=== PATIENT | male | born 1955 | race Caucasian/White ===

== ENCOUNTER 2017-05-10 13:30 | Outpatient (RCR) | payer OTHER, SELFPAY ==
--- NOTE | 2017-04-12 16:30 | HP.PTEVAL_ITS ---
Patient's Visit Information JEISON WHATLEY is a 61 year old M referred to Physical Therapy by Litzy Man , DO LUNA with a diagnosis of Right RTC Repair. Date of Evaluation: 04/12/17 Physical Therapist: April Parada - Visit Plan Frequency: 2x /Week Duration: 6 Weeks Plan: s/p RTC repair (subscap) 03/28/[address] Brown- follow protocol - Subjective Subjective: Right RTC repair and clean out Mar 28, [address] Man. Headed home straight home after surgery- has help at home. Most of the pain is in the front- radiates to the elbow- but no pain in the neck. Describes pain as dull and achy- No N/T in the fingers that is new. Worst: 7/10 Agg: moving it around. Averages 4-5/10. Sleep: goes to sleep in the reclyner and then goes upstairs after 2-3 hours. Best: 3/10 Eases: polar pack in the evenings- Takes pain meds for his neck- [place]- by Dr. Plasencia. Does have injections periodically- has had C5-C6 fused 2006 or . Wear and tear of the shoulder- no specific injury. 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 Right hand dominate. Fully I before surgery. Saw Dr. Brown today- she said don 't mess up my good work. Has been using his arm but when he feels pain he stops. Wears the sling all the time. No x-rays today- took out sutures. PMHx/ Meds: no change since surgery - Objective Posture: guarding of the right UE. Observation: wearing sling on the right without pillow. Palpation: tender along medial border of the scapula and in the anterior shoulder along bicipital groove. ROM: finger dexterity: WNL, Elbow : WNL, PROM: Shoulder: flexion- 160 degrees, Abd: 150 degrees, IR: to belly, ER : 40 degrees- mild pain througout but no empty end feel. Strength: Clerical Adjudicator: equal to other side - Goals Goal 1:: Patient will be I with HEP and progression Goal Time Frame: 4-6 Weeks Goal 2:: Patient will demo full AROM as appropriate through RTC protocol Goal Time Frame: 4-6 Weeks Goal 3:: Patient will demo ability to stack 3 cones overhead for 3 min with no increased pain (as per protocol) Goal Time Frame: 4-6 Weeks Goal 4:: Patient will report 0/10 pain for 1 week with return to all normal activities (as per protocol) Goal Time Frame: 4-6 Weeks - Rehabilitation Potential Physical Therapy Diagnosis: Patient presents with hypomobility- he has decreased ROM, strength and muscular endurance leading to decreased ability to perform ADL's. Rehabilitation Potential: Fair - Anticipated Interventions Patient/Client Instruction: Educate patient on: Benefits of Fitness Program For the Purpose of:: To increase tolerance to activity/condition/position Therapeutic Exercise to Include: Strength training, Endurance training, Coordination, Body mechanics, Postural training, Passive ROM, Active ROM, Scapular Strength/Stabilization For the Purpose of:: To improve muscle performance and motor function Manual Therapy Techniques to Include: Passive ROM For the Purpose of:: To increase ROM TENS: Yes Cryotherapy (ice pack, ice massage): Yes Thermo therapy (hot pack): Yes Ultrasound (thermal/non thermal): No For the Purpose of:: To decrease pain Thank you for the opportunity to evaluate your patient. For Medicare and Medicare HMO plans, please review the plan of care and approve it. It will need to be FAXED BACK to us at [phone] for Medicare purposes. Please let me know if there are questions or concerns regarding this plan of care. Physician Signature: Date:
--- NOTE | 2017-07-23 14:35 | HP.PTDCNRP_ITS ---
HP - Discharge Summary (1) - Patient Information JEISON WHATLEY was seen in my office for initial evaluation on 04/12/17. The following Plan of Care was established for this patient: Initial Frequency: 2x /Week Initial Duration: 6 Weeks - Anticipated Interventions Patient/Client Instruction: Educate patient on: Benefits of Fitness Program For the Purpose of:: To increase tolerance to activity/condition/position Therapeutic Exercise to Include: Strength training, Endurance training, Coordination, Body mechanics, Postural training, Passive ROM, Active ROM, Scapular Strength/Stabilization For the Purpose of:: To improve muscle performance and motor function Manual Therapy Techniques to Include: Passive ROM For the Purpose of:: To increase ROM TENS: Yes Cryotherapy (ice pack, ice massage): Yes Thermo therapy (hot pack): Yes Ultrasound (thermal/non thermal): No For the Purpose of:: To decrease pain This patient was last seen in our office . Pertinent comments regarding their Physical therapy will appear below: Patient has not attended physical therapy in over 4 weeks- appropriate to be d/ c at this time. At this point I will be discontinuing this patient from physical therapy. I would be happy to see this patient again in the future if found appropriate by the physician. Thank you! April Parada
== END 2017-05-10 19:00 | disposition home or self-care (01) ==
LOC: PT 13:30
PROVIDERS: Family Provider Family Medicine; PCP Family Medicine; Visit Provider Orthopaedic Surgery
DX: Z98.890 Other specified postprocedural states (principal)
CPT/HCPCS: 97110; 97161

== ENCOUNTER 2018-03-12 10:00 | Outpatient (RCR) | payer OTHER, SELFPAY ==
--- NOTE | 2018-02-11 14:23 | HP.PTEVAL ---
Patient's Visit Information JEISON WHATLEY is a 62 year old M referred to Physical Therapy by ROVERTO ALTAMIRANO with a diagnosis of Right shoulder pain. Date of Evaluation: 02/11/18 Physical Therapist: April Parada - Visit Plan Plan: Not appropriate for PT at this time- would benefit from OT for hand therapy as this is his limiting factor. - Subjective Subjective: Patient reports that he has pain in the right shoulder- March [address] 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 Pain comes and goes when he is working overhead- can work through it or stop- can rest for a few min and can go back to activity. Worst: 09/23 Best: 04/25. Describes the pain as sharp/shooting- in the joint- no radiating pain- N/T secondary to spinal fusion 2006. Right hand dominate. Feels that he is 50% of his normal capacity- due to his hands. Can do 80% of his work due to his shoulders. No increase in tovar, blurred vision, neck pain. Sleep: wakes him up occasionally but not very often more of a hand issue. No x-rays or MRI recently. Saw MD at 6 weeks who was happy with his progress and has not had to see them again. PMHx: cervical fusion, left shoulder 2014, right shoulder 2017. Meds: [facility] - Objective Posture: FH, RS,- can correct with verbal cues and does maintain. Palpation: not tender. ROM: WFL in all planes. Strength: 5/5 throughout Scap: fair plus. Special Test: Impingment: negative Empty Can: negative - Rehabilitation Potential Physical Therapy Diagnosis: Patient currently has no deficits with right shoulder - Anticipated Interventions Thank you for the opportunity to evaluate your patient. For Medicare and Medicare HMO plans, please review the plan of care and approve it. It will need to be FAXED BACK to us at [phone] for Medicare purposes. Please let me know if there are questions or concerns regarding this plan of care. Physician Signature: Date:
--- NOTE | 2018-03-27 09:48 | HP.OTDCSUM_ITS ---
HP - OT D/C Summary It has been my pleasure to treat JEISON WHATLEY under orders from ROVERTO ALTAMIRANO, for the diagnosis of bilateral hand pain for a total of 3 visit(s). Please see the following information for a summary of their discharge status. - Overall Improvement % Improvement: 75 - Objective Objective/Function: apprentice machinist outside strength 85# in L and 60# in R. lateral 18# in R and 23# in L. tripod 16# in R and 22# in L - Goals Patient Goals: Decrease Pain, Decrease Swelling/Stiffness, Use Hand/Wrist/Arm Normally Again, Be More Independent in ADLS, Resume Former Household Responsibilities (Cooking,Cleaning,Yard, etc.), Resume Hobbies Goal:: Patient will increase overall apprentice machinist outside strength by 20 lbs. by completing strengthening exercises and stretches in order to complete BADL?s and IADL?s. Patient will improve lateral and tripod grasps by 5 lbs. by completing strengthening and stretching exercises in order to complete BADL?s and IADL?s. Goal:: Patient will report overall decrease in pain of <4 in order to complete BADL?s and IADL?s. Goal:: Patient will demo ability to diamond picker 10 small objects within 20 seconds in order to increase I with BADL's and IADL's. Goal:: Patient will demo understanding of joint protection and ECM recommendations for increase I with BADL?s and IADL?s. - Plan Plan: paraffin. joint mobs/ distractions - D/C Information Discharge Comments: pt. was seen for a couple visits to educate about joint protection and educate about conservative tx. Pt. tolerated conservative methods for arthritis management and reported understanding of joint protection recommendations. pt. was non-compliant with joint protection recommendations and reported that conservative methods provided relief for a couple hours a day. pt. was d/c d/t plateau of progress with pain management. pt d/c with HEP and recommendations to modify work tasks and purchasing home paraffin unit and copper gloves. If there are questions or concerns regarding this patient's occupational therapy, please fell free to call me at [phone]. Thank you for the referral of this patient. Sincerely, Guera Mitchell, OTR/L, CHT
== END 2018-03-12 19:00 | disposition home or self-care (01) ==
LOC: OT 10:00
PROVIDERS: Family Provider Family Medicine; PCP Family Medicine
DX: M25.511 Pain in right shoulder (principal)
CPT/HCPCS: 97140; 97161; 97166; G8978; G8979; G8980; G8987; G8988; G8989

== ENCOUNTER 2018-06-20 15:00 | Outpatient (RCR) | payer OTHER, SELFPAY ==
--- NOTE | 2018-05-21 16:17 | HP.PTEVAL ---
Patient's Visit Information JEISON WHATLEY is a 62 year old M referred to Physical Therapy by EVELIA LAYNE with a diagnosis of L shoulder strain. Date of Evaluation: 05/21/18 Physical Therapist: Noman Casper, PT, ATC - Visit Plan Frequency: 2x /Week Duration: 4 Weeks Plan: L shoulder strengthening (rot cuff), scap stab ex's, UBE, and HEP - Subjective Findings: Pt reports he fell two weekends ago on ice and injured his L shoulder. Pt reports he has a Hx of shoulder problems as he has had both of his rotator cuffs repaired in the past. Pt reports . has pain that rediates from his lshoulder to his elbow. Pt reports his pain is achy in general, but if he moves it wrong, pain becomes stabbing in nature. 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 Pt reports he is unable to lift his L LE over his head, but he can do all activity with his arm down. Pt is L hand dom. 4/10 pain at rest, 8/10 pain at worst - Pain L shoulder Pain Intensity (Out of 10): 4 Pain Intensity Range: 8 - Objective Neuro: B UE sensation is WNL to light touch. B bicepital reflex= 1/3. palpation: Pt has sig pain in the biceps origin. No obvious deformity. ROM: R shoulder flex= 160, abd= 160, ER 65, IR WNL; L shoulder flex= 40, abd= 40, ER= 45, IR moderately limited. MMT: R shoulder is 5/5 throughout. L shoulder is 2-/5 and painful with testing. Special testing: empty can pos, HK pos - Goals Goal 1:: Decrease L shoulder pain x 50% to aid with sleep Goal Time Frame: 2-4 Weeks Goal 2:: Increase L shoulder ROM flex and abd x 40 degrees to aid with overhead activity Goal Time Frame: 2-4 Weeks Goal 3:: Increase L shoulder strength x 1 grade to aid with RTW without limitation Goal Time Frame: 2-4 Weeks Goal 4:: I with HEP Goal Time Frame: 2-4 Weeks - Rehabilitation Potential Physical Therapy Diagnosis: L shoulder pain, weakness, and limited ROM secondary to rot cuff pathology Rehabilitation Potential: Good - Anticipated Interventions Patient/Client Instruction: Educate patient on: Condition, Plan of Care For the Purpose of:: To improve self management Therapeutic Exercise to Include: Strength training, Endurance training, Scapular Strength/Stabilization For the Purpose of:: To decrease pain, To increase ROM, To improve muscle performance and motor function Cryotherapy (ice pack, ice massage): Yes For the Purpose of:: To decrease pain Thank you for the opportunity to evaluate your patient. For Medicare and Medicare HMO plans, please review the plan of care and approve it. It will need to be FAXED BACK to us at [phone] for Medicare purposes. For Medicare only, by signing this I certify the plan of care. Please let me know if there are questions or concerns regarding this plan of care. Physician Signature: Date:
--- NOTE | 2018-10-31 11:44 | HP.PTDCSUM_ITS ---
HP - PT D/C Summary It has been my pleasure to treat JEISON WHATLEY under orders from EVELIA LAYNE, for the diagnosis of L shoulder strain for a total of 9 visit(s). Discharge Date: Please see the following information for a summary of their discharge status. - Subjective Subjective: Pt reports he is ready for HEP - Pain L shoulder Pain Intensity (Out of 10): 3 - Overall Improvement % Improvement: 50 - Objective Objective/Function: L shoulder pain is currently 3/10, increases to 5-6/10 at work. L shoulder ROM: flexion= 115, abd= 60, ER= 55, IR WNL compared bilateral ly. L shoulder MMT: 3/5 in available range. Pt is I with HEP - Goals Goal 1:: Decrease L shoulder pain x 50% to aid with sleep Goal Progress: Goal Met Goal 2:: Increase L shoulder ROM flex and abd x 40 degrees to aid with overhead activity Goal Progress: Progressing Goal 3:: Increase L shoulder strength x 1 grade to aid with RTW without limitation Goal Progress: Progressing Goal 4:: I with HEP Goal Progress: Goal Met - Plan Plan: Discharge - D/C Information If there are questions or concerns regarding this patient's physical therapy, please feel free to call me at [phone]. Thank you for the referral of this patient. Sincerely, Noman Casper, PT, ATC
== END 2018-06-20 19:00 | disposition home or self-care (01) ==
LOC: PT 15:00
PROVIDERS: Family Provider Family Medicine; PCP Family Medicine
DX: M25.512 Pain in left shoulder (principal)
CPT/HCPCS: 97110; 97161; 97530

== ENCOUNTER → 2019-03-25 09:46 | Outpatient (CLI) | payer MEDICARE, SELFPAY ==
--- NOTE | 2019-03-25 09:52 | RAD_ITS ---
STUDY: X-RAY - LUMBAR SPINE REASON FOR EXAM: Male, 63 years old. Back pain TECHNIQUE: 3 view(s) of the lumbar spine were obtained. COMPARISON: 12 March 2017 FINDINGS: Lumbar spine is intact and aligned with multilevel age-related age appropriate spondylosis. Mineralization is normal. Paraspinous soft tissue shadows are unremarkable. SI joints are normal. RAD/Lumbar Spine 2 or 3 Views IMPRESSION: Unremarkable radiography of the lumbar spine with degenerative change. MR for further details of canal contents. Electronically Signed: Mara Campbell, at 18:06 EST Tel , Service support ,
== END ==
PROVIDERS: Family Provider Family Medicine; PCP Family Medicine; Referring Provider Anesthesiology Pain Medicine; Visit Provider Anesthesiology Pain Medicine
DX: M54.9 Dorsalgia, unspecified (principal)
CPT/HCPCS: 72100

== ENCOUNTER → 2019-03-29 07:04 | Outpatient (CLI) | payer MEDICARE, SELFPAY ==
--- NOTE | 2019-03-29 07:18 | MRI_ITS ---
STUDY: MRI LUMBAR SPINE WITHOUT CONTRAST REASON FOR EXAM: Male, 63 years old. Back pain TECHNIQUE: Standardized fat and water weighted pulse sequences were obtained in the sagittal and axial planes. COMPARISON: 12 March 2017 FINDINGS: There is grade 1 degenerative retrolisthesis of L2 on L3, approximately 3 to 4 mm and unchanged since prior. Diffuse marrow is heterogeneous likely due to superimposed acute degenerative reactive changes at multiple levels, worst at L1-L2 and L4-L5. Paraspinous soft tissues are unremarkable. Aorta is of normal caliber. Conus medullaris terminates at T12-L1. Cauda equina is redundant and compressed at L3-L4 and L4-L5. T12-L1, L1-L2 of patent canal and foramina. L2-L3 has mild to moderate thecal sac compression due to circumferential spondylosis and dorsal epidural lipomatosis. There is mild bilateral foraminal stenosis. L3-L4 has moderate spondylotic canal stenosis and severe thecal sac compression due to superimposed spondylosis. There is moderate bilateral foraminal stenosis. L4-L5 has severe spondylotic thecal sac compression. There is moderate bilateral foraminal stenosis and bilateral lateral recess stenosis. L5-S1 has been canal and lateral recesses with mild left foraminal stenosis. Right foramen is patent. Since 2017 degenerative change has progressed with marked worsening of compressive effect. MRI/Spine Lumbar (Routine) IMPRESSION: 1. Progression of degenerative change and compressive effect since 2017. 2. Severe spondylotic thecal sac compression at L4-L5. Neurosurgical referral is advised. Electronically Signed: Mara Campbell, at 18:32 EST Tel , Service support ,
== END ==
PROVIDERS: Family Provider Family Medicine; PCP Family Medicine; Referring Provider Anesthesiology Pain Medicine; Visit Provider Anesthesiology Pain Medicine
DX: M54.9 Dorsalgia, unspecified (principal)
CPT/HCPCS: 72148

== ENCOUNTER → 2019-05-27 13:30 | Outpatient (CLI) | payer MEDICARE, SELFPAY ==
--- NOTE | 2019-05-27 13:30 | RAD_ITS ---
STUDY: X-RAY - LUMBAR SPINE REASON FOR EXAM: Male, 63 years old. LBP TECHNIQUE: 4 view(s) of the lumbar spine were obtained. COMPARISON: None FINDINGS: Normal lumbar lordosis. There is mild lumbar levoscoliosis. There is a grade 1 anterolisthesis of L4 relative to L3 and L5, and a grade 1 anterolisthesis of L3 relative to L2. There is diffuse endplate spondylosis. There is multi-level degenerative disc disease with multi-level disc space narrowing. There are calcified plaques in abdominal aorta. RAD/L/S Spine Min 4 Views IMPRESSION: 1. Mild lumbar levoscoliosis. 2. Diffuse endplate spondylosis. 3. Grade 1 anterolisthesis of L4 relative to L3 and L5, and a grade 1 anterolisthesis of L3 relative to L2. 4. There is no evidence of fracture. 5. There is multilevel disc space narrowing. Electronically Signed: Cheo Hazel MD at 22:23 EST , Service support ,
== END ==
LOC: HPRAD 13:30
PROVIDERS: PCP Family Medicine; Referring Provider Orthopaedic Surgery; Visit Provider Orthopaedic Surgery
DX: M54.5 Low back pain (principal)
CPT/HCPCS: 72110

== ENCOUNTER 2019-09-05 12:13 | Emergency (ER) | payer MEDICARE, SELFPAY ==
[2019-05-27 21:35] VITALS: BMI 28.2
[2019-09-05 12:14] VITALS: BP 115/60; PULSE 84; RESP 16; TEMP 36.6; O2SAT 95; BMI 23.1
--- NOTE | 2019-09-05 12:27 | ED.DCSUM_ITS ---
History of Present Illness Chief Complaint: Complaint Informant: Patient Onset: Days Context: Gradual Onset Timing: Continuous Current Severity: Moderate Maximum Severity: Moderate Narrative: The patient is a 63-year-old male with medical history significant for chronic back pain who is approximately 7 days status post L1-L5 lumbar discectomy with fusion the presents to the emergency department with urinary retention. Patient had his surgery [facility]. He did have urinary retention after his surgery. He was discharged home with a catheter. He followed up to have the catheter removed and was able to urinate. He states that he has to sit down to urinate because of his back surgery. Over the past 24 hours, he states he is had significant difficulty urinating. He denies any numbness in his groin. He denies any weakness in his legs. He said no fever or chills. He states he is otherwise been in his normal state of health. Prior similar symptoms: Yes Recent Illness/Hospitalization: Yes Past Medical History - Allergies and Home Meds Allergies/Adverse Reactions: Allergies bupropion [From Wellbutrin] Allergy (Mild, Verified 09/05/19 12:16) swelling Primary Care Physician: Florin Tao MD [Primary Care Provider] - Prior records reviewed: Yes Past Medical History: - - Prior prostate and bladder surgery, hypertension Surgical History: - - Laminectomy and fusion Smoking Status: Current every day smoker Review of Systems General: Denies: Chills, Fever, Sweats Eyes: Denies: Visual changes - bilaterally, Diplopia ENT: Denies: Rhinorrhea, Sore throat Cardiovascular: Denies: Chest pain, Palpitations Respiratory: Denies: Dyspnea, Cough, Dyspnea on exertion Gastrointestinal: Denies: Abdominal pain, Nausea, Vomiting, Diarrhea, Melena, Hematochezia Genitourinary: Reports: Frequency Musculoskeletal: Denies: Back pain, Extremity Pain Skin: Denies: Rash, Wounds Neurological: Denies: Headache, Weakness, Numbness Physical Exam Vital Signs/Narrative: Vital Signs Temp Pulse Resp BP Pulse Ox 09/05/19 12:14 97.8 F 84 16 115/60 95 Inital Vital Signs reviewed: Yes General: Well nourished, Well developed, No Acute Distress Head: Normocephalic, Atraumatic Eyes: Perrl, EOMI ENT: Moist mucous membranes, No rhinorrhea Neck: Supple, Nontender Cardiovascular: Regular rate, Regular rhythm, No murmurs Respiratory: No distress, CTA bilaterally, Chest nontender Abdomen: Soft, Nontender, Nondistended, Normal bowel sounds Back: Nontender, Normal Inspection Extremities: Nontender, No edema Skin: Normal color, No rash Neurological: Alert, Oriented x3, Cranial nerves II-XII grossly intact, Normal Strength, Normal Sensation Psychological: Normal affect, Normal Mood Diagnostic/Tx/Re-eval Abnormal Lab Results 09/05/19 09/05/19 09/05/19 12:45 12:45 12:45 WBC 20.4 H RBC 3.72 L Hgb 10.8 L Hct 33.9 L MCV 91.1 MCH 29.0 MCHC 31.9 L RDW Std Deviation 44.5 H RDW Coeff of Zachary 13.3 Plt Count 422 MPV 8.7 Immature Gran % (Auto) 0.800 Neut % (Auto) 80.2 H Lymph % (Auto) 11.5 L [place] % (Auto) 7.1 Eos % (Auto) 0.2 Baso % (Auto) 0.2 Absolute Neuts (auto) 16.4 H Absolute Lymphs (auto) 2.35 Nucleated RBC % 0 ESR 34 H Sodium 134 L Potassium 4.2 Chloride 101 Carbon Dioxide 28.0 Anion Gap 5 BUN 15 Creatinine 0.88 Estim Creat Clear Calc 99.55 Est GFR (MDRD) Af Amer 111 Est GFR (MDRD) Non-Af 92 BUN/Creatinine Ratio 17.0 Glucose 117 H Lactic Acid Calcium 8.9 C-React Prot Ext Range Urine Color Urine Clarity Urine pH Ur Specific [place] Urine Protein Urine Glucose (UA) Urine Ketones Urine Occult Blood Urine Nitrite Urine Bilirubin Urine Urobilinogen Ur Leukocyte Esterase Urine RBC Urine WBC Ur Squamous Epith Cells Urine Bacteria Urine Mucus 09/05/19 09/05/19 09/05/19 12:45 13:17 13:35 WBC RBC Hgb Hct MCV MCH MCHC RDW Std Deviation RDW Coeff of Zachary Plt Count MPV Immature Gran % (Auto) Neut % (Auto) Lymph % (Auto) [place] % (Auto) Eos % (Auto) Baso % (Auto) Absolute Neuts (auto) Absolute Lymphs (auto) Nucleated RBC % ESR Sodium Potassium Chloride Carbon Dioxide Anion Gap BUN Creatinine Estim Creat Clear Calc Est GFR (MDRD) Af Amer Est GFR (MDRD) Non-Af BUN/Creatinine Ratio Glucose Lactic Acid 1.0 Calcium C-React Prot Ext Range 155.00 H Urine Color Yellow Urine Clarity Clear Urine pH 7.0 Ur Specific [place] 1.010 Urine Protein 15 H Urine Glucose (UA) Normal Urine Ketones Negative Urine Occult Blood 150 H Urine Nitrite Positive H Urine Bilirubin Negative Urine Urobilinogen Normal Ur Leukocyte Esterase 100 H Urine RBC 0-5 SEEN Urine WBC 0-5 SEEN Ur Squamous Epith Cells 0 SEEN Urine Bacteria 1+ Urine Mucus 0 SEEN - Medical Decision Making The patient presents with increasing urinary retention status post spinal surgery. His incision is clean, dry, intact. He does however admit to some chills and generalized malaise. Metabolic work-up was pursued. Bladder scan did show greater than 400 cc of urine. Hael was placed. Patient does have a market leukocytosis of 20,000. He also has elevation of inflammatory markers. His urine only shows 1+ bacteria with no whites. Given the patient's symptoms with his recent surgery, I am suspicious for deep space infection and do feel that he would require spine surgery evaluation. I did discuss the patient with his surgeon, Dr. Estrada. The patient will be transferred to [facility] for orthopedic evaluation. Impression 1. Urinary retention 2. Leukocytosis 3. Postop lumbar surgery ED Disposition - Plan for ED Patient: Referrals: Florin Tao MD [Primary Care Provider] -
[2019-09-05 13:00] LABS: Absolute Lymphocyte Count 2.35 X10^3/uL (0.83-4.51); Absolute Neutrophil Count 16.4 X10^3/uL (2.0-7.7); Basophil# 0.05 X10^3/uL; Basophil% 0.2 % (0-1); Eosinophil# 0.04 X10^3/uL; Eosinophils% 0.2 % (0-5); Hematocrit 33.9 % (40-54); Hemoglobin 10.8 g/dL (13.0-16.5); Lymphocyte # 2.35 X10^3/ul (4.0); Lymphocyte % 11.5 % (19-41); Mean Corp Hgb Conc 31.9 g/dL (32-36); Mean Corpuscular Volume 91.1 fL (80-94); Mean Platelet Vol. 8.7 fl (6.2-12.0); Monocyte# 1.45 X10^3/uL; Monocyte% 7.1 % (0-10); NRBC Flagged by Analyzer 0 % (0-5); Neutrophil # 16.36 X10^3/uL (2.7-7.7); Neutrophil % 80.2 % (47-70); Platelet Count 422 K/mm3 (150-450); RBC Distribution Width CV 13.3 % (11.6-14.6); RBC Distribution Width SD 44.5 fl (35.1-43.9); Red Blood Count 3.72 M/mm3 (4.6-6.2); White Blood Count 20.4 K/mm3 (4.4-11.0)
[2019-09-05 13:13] LABS: Anion Gap 5 (5-15); BUN 15 mg/dL (7-18); Calcium,Total 8.9 mg/dL (8.5-10.1); Chloride 101 mmol/L (98-107); Creatinine, Serum 0.88 mg/dL (0.70-1.30); EST Glomerular Filtration Rate 92 mL/min (>60); Est Glom Filt Rate - Afr Amer 111 mL/min (>60); Estimated Creatinine Clearance 99.55 ml/min; Glucose 117 mg/dL (74-106); Potassium 4.2 mmol/L (3.5-5.1); Sodium Level 134 mmol/L (136-145)
[2019-09-05 13:27] LABS: Mucous, Urine 0 SEEN /hpf (<or=2+); Squamous Epithelial Cells - UA 0 SEEN /hpf (0-5)
[2019-09-05 13:30] LABS: Color, Urine Yellow (Yellow); Glucose, Dipstick Normal (Normal); Ketone-Dipstick Negative (Negative); Leukocyte Esterase-Dipstick 100 /ul (Negative); Nitrite-Dipstick Positive (Negative); Occult Blood-Urine 150 /ul (Negative); Protein-Dipstick 15 mg/dl (Negative); Urine Bilirubin Dipstick Negative (Negative); Urine Clarity Clear (Clear); Urine Urobilinogen Normal (Normal)
[2019-09-05 13:47] LABS: Erythrocyte Sedimentation Rate 34 mm/hr (0-20)
[2019-09-05 13:53] LABS: Bacteria 1+ /hpf (None Seen); Red Blood Cells-Urine 0-5 SEEN /hpf (0-5); White Blood Cells 0-5 SEEN /hpf (0-5)
[2019-09-05 14:00] VITALS: TEMP 37.5
[2019-09-05] MEDS: Morphine 4 MG/ML Syringe IV (14:08)
[2019-09-05 17:24] VITALS: BP 135/45; PULSE 79; RESP 17; TEMP 37.8; O2SAT 98
--- NOTE | 2019-09-05 18:01 | ED.RN ---
This nurse call and updated about transfer to [place].
== END 2019-09-05 17:42 | disposition short-term general hospital (02) ==
PROVIDERS: Emergency Provider Emergency Medicine; PCP Family Medicine
DX: R33.9 Retention of urine, unspecified (principal); D72.829 Elevated white blood cell count, unspecified; Z98.890 Other specified postprocedural states; I10 Essential (primary) hypertension; G89.29 Other chronic pain; F17.200 Nicotine dependence, unspecified, uncomplicated; Z79.899 Other long term (current) drug therapy
CPT/HCPCS: 51702; 80048; 81001; 83605; 85025; 85652; 86140; 87040; 96374; 99285; A4216

== ENCOUNTER 2020-03-17 11:00 | Outpatient (RCR) | payer MEDICARE, SELFPAY ==
--- NOTE | 2020-02-11 12:36 | HP.PTEVAL_ITS ---
Patient's Visit Information JEISON WHATLEY is a 64 year old M referred to Physical Therapy by Dr. Carter Arredondo MD with a diagnosis of Central spinal stenosis s/p fusion in August. Date of Evaluation: 02/11/20 Physical Therapist: PAT Young - Visit Plan Frequency: 2x /Week Duration: 2 Months Plan: 2X/ week for 6-8 weeks for stretching of LB, HS, QUads, strengthening of core, postural musculature, LE including hip strength with HEP and MH as needed to increase circulation and increase flexibility. Possible nerve root stretches.... - Subjective Pt had a fusion of L2-L5 in August and he had his final eval with his Dr and his Dr said to call him if he felt he was still painful and his Dr sent him to PT. He just got calf stetches from the hospital. He is up moving throughout the day. He is in constant pain across his LB and downt he R side of his spine to his belt line and up to his ribcage. It feels like a dull ache and sometimes sharp... when he tries to lift anything. The Dr gave him no restrictions. He is not sleeping ok... he sleeps for 2 hours at a time and then gets up 30 min and goes back to sleep. He averages 5-[address] said he would have pain for about a years time. He says that it is hard to get up off the ground from squating of kneeling position. He works on [employer] on the side. - Pain back pain Pain Intensity (Out of 10): 5 - Objective Gait: walks with a normal gait pattern. LE MMT: B hip flex 4-/5, B hip ex 3- /5, B hip abd 4-/5, B knee flex and ext 4-/5, pt is able to walk on his heels and toes. Pt is not able to long sit or do a full ROM LAQ due to increase pain in his LB. Trunk AROM; flexion 50%, Ext 25%, 75% B, tunk rotation 50% B. Patellar DTR's 1+/3 B. + SLR on the L for R sided back pain - Goals Goal 1:: I HEP for stretching and strengthening Goal Time Frame: 6-8 Weeks Goal 2:: Be able to do a LAQ with increase sitting posture without back pain Goal Time Frame: 4-6 Weeks Goal 3:: Increase trunk AROM by 25% each plane without pain (at time of eval: Trunk AROM; flexion 50%, Ext 25%, 75% B, tunk rotation 50% B) Goal Time Frame: 4-6 Weeks Goal 4:: Increase LE strength by 1/2 muscle grade (at time of eval : LE MMT: B hip flex 4-/5, B hip ex 3-/5, B hip abd 4-/5, B knee flex and ext 4-/5, pt is able to walk on his heels and toes). Goal Time Frame: 6-8 Weeks - Rehabilitation Potential Rehabilitation Potential: Good - Anticipated Interventions Patient/Client Instruction: Educate patient on: Condition, Plan of Care For the Purpose of:: To decrease pain, To increase ROM, To improve nutrient delivery to tissue, To improve muscle performance and motor function, To improve ability to perform ADL's, To increase tolerance to activity/condition/position, To improve performance and independence with ADL's, To decrease level of supervision to perform tasks, To improve ability of physical actions for home/community/work/leisure, To improve gait and locomotor functions, To improve health of tissue, To decrease soft tissue restriction, To increase fl exibility/ROM Therapeutic Exercise to Include: Strength training, Endurance training, Postural training, Flexibilty training, Gait and locomotor training, Neuromotor developme nt, Passive ROM, Active ROM, Dynamic Lumbar Stabilization, Scapular Strength/Stabilization For the Purpose of:: To decrease pain, To improve nutrient delivery to tissue, To increase oxygenation perfusion, To improve muscle performance and motor function, To improve ability to perform ADL's, To increase tolerance to activity/condition/position, To improve performance and independence with ADL's, To decrease level of supervision to perform tasks, To improve ability of physical actions for home/community/work/leisure, To improve gait and locomotor functions, To improve health of tissue, To decrease soft tissue restriction, To increase flexibility/ROM Thermo therapy (hot pack): Yes For the Purpose of:: To decrease pain, To increase ROM, To improve nutrient delivery to tissue Thank you for the opportunity to evaluate your patient. For Medicare and Medicare HMO plans, please review the plan of care and approve it. It will need to be FAXED BACK to us at [phone] for Medicare purposes. For Medicare only, by signing this I certify the plan of care. Please let me know if there are questions or concerns regarding this plan of care. Physician Signature: Date:
--- NOTE | 2020-05-25 10:52 | HP.PT.NRP ---
JEISON WHATLEY was seen in my office for initial evaluation on 02/11/20. The following Plan of Care was established for this patient: Initial Frequency: 2x /Week Initial Duration: 2 Months Patient/Client Instruction: Educate patient on: Condition, Plan of Care For the Purpose of:: To decrease pain, To increase ROM, To improve nutrient delivery to tissue, To improve muscle performance and motor function, To improve ability to perform ADL's, To increase tolerance to activity/condition/position, To improve performance and independence with ADL's, To decrease level of supervision to perform tasks, To improve ability of physical actions for home/community/work/leisure, To improve gait and locomotor functions, To improve health of tissue, To decrease soft tissue restriction, To increase flexibility/ROM Therapeutic Exercise to Include: Strength training, Endurance training, Postural training, Flexibilty training, Gait and locomotor training, Neuromotor development, Passive ROM, Active ROM, Dynamic Lumbar Stabilization, Scapular Strength/Stabilization For the Purpose of:: To decrease pain, To improve nutrient delivery to tissue, To increase oxygenation perfusion, To improve muscle performance and motor function, To improve ability to perform ADL's, To increase tolerance to activity/condition/position, To improve performance and independence with ADL's, To decrease level of supervision to perform tasks, To improve ability of physical actions for home/community/work/leisure, To improve gait and locomotor functions, To improve health of tissue, To decrease soft tissue restriction, To increase flexibility/ROM Thermo therapy (hot pack): Yes For the Purpose of:: To decrease pain, To increase ROM, To improve nutrient delivery to tissue This patient was last seen in our office 03/17/20. Pertinent comments regarding their Physical therapy will appear below: DC PT as pt No showed for his last appointment and did not reschedule. At this point I will be discontinuing this patient from physical therapy. I would be happy to see this patient again in the future if found appropriate by the physician. Thank you! Paige Magallanes, MPT
== END 2020-03-17 19:00 | disposition home or self-care (01) ==
LOC: PT 11:00
PROVIDERS: PCP Family Medicine; Referring Provider Orthopaedic Surgery Orthopaedic Surgery of the Spine; Visit Provider Orthopaedic Surgery Orthopaedic Surgery of the Spine
DX: M48.00 Spinal stenosis, site unspecified (principal)
CPT/HCPCS: 97110; 97161

== ENCOUNTER 2021-07-10 12:53 | Emergency (ER) | payer OTHER, SELFPAY ==
[2021-07-10 12:55] VITALS: BP 167/77; PULSE 64; RESP 20; TEMP 36.9; O2SAT 96; BMI 26.2
[2021-07-10 13:01] VITALS: BP 140/69; PULSE 96; RESP 18; O2SAT 94
--- NOTE | 2021-07-10 13:13 | RAD_ITS ---
STUDY: X-RAY CHEST REASON FOR EXAM: Male, 65 years old. syncope TECHNIQUE: Single AP portable view of the chest. COMPARISON: None. FINDINGS: The lungs are clear and expanded. There is no demonstrated pleural abnormality. Normal size heart. Normal mediastinum and nereyda. Normal visualized pulmonary arteries. Normal visualized aortic arch and descending thoracic aorta. Normal visualized thoracic spine. Normal visualized ribs, clavicles, and shoulders. There is no demonstrated abnormality of the visualized soft tissue structures of the upper abdomen. RAD/Chest 1 View (Portable) IMPRESSION: Normal x-ray examination of the chest. Electronically Signed: Justin Garcia MD at 14:29 EDT ,
--- NOTE | 2021-07-10 13:13 | CT_ITS ---
STUDY: CT BRAIN WITHOUT CONTRAST REASON FOR EXAM: Male, 65 years old. mental status change RADIATION DOSAGE (If Supplied By Facility): CTDIvol = ( 44.99 ) mGy, DLP = ( 829.85 ) mGycm TECHNIQUE: Transaxial CT imaging of the brain was performed without administration of intravenous contrast material. Individualized dose optimization techniques were used for this CT. COMPARISON: No relevant priors. FINDINGS: Normal soft tissue structures. Normal calvarium. Normal size ventricles and extra-axial spaces for the patient''s age. Normal white matter tracts of the cerebral hemispheres. Normal basal ganglia and thalami. Normal brainstem. Normal cerebellum. There is no intracranial hemorrhage. There are no findings of an acute ischemic infarction. Normal visualized paranasal sinuses. CT/Brain/Head without Contrast IMPRESSION: Normal unenhanced CT scan of the brain. Electronically Signed: Justin Garcia MD at 14:15 EDT ,
--- NOTE | 2021-07-10 13:13 | EKG12_ITS ---
Test Reason : Blood Pressure : / mmHG Vent. Rate : 093 BPM Atrial Rate : 093 BPM P-R Int : 144 ms QRS Dur : 098 ms QT Int : 360 ms P-R-T Axes : 068 047 045 degrees QTc Int : 447 ms Normal sinus rhythm Normal ECG Confirmed by MALCOLM WALLACE, JIMENA ([id number]), editorial manager BOB ESCALONA ([id number]) on 07/12/2021 10:36:48 AM Referred By: MAUREEN Confirmed By:JIMENA FOWLER MD
--- NOTE | 2021-07-10 13:15 | EDS_ITS ---
HPI History of Present Illness Chief Complaint: Seizure Detail of Chief Complaint: Unresponsive episode that occurred prior to arrival in the emergency depart Informant: patient and EMS Narrative Narrative: Patient brought to the emergency department from home for an unresponsive episode. apparently found patient passed out in his chair and was unresponsive for about 10 minutes. Patient does not recall any of this. Patient remembers watching television in his chair and the next thing he knew there were EMS personnel around him. Patient denies any headache or chest pain. Denies recent illness. He denies illicit drug use other than he does use marijuana occasionally and did not use any today. Patient does not have history of seizures. Patient apparently had been incontinent of urine. Prior similar symptoms: No PFSH PFSH Medical History (Updated 07/10/21 @ 14:[address] Michael Mark DO) Hypertension Home Medications losartan 50 mg PO DAILY 08/20/14 [History Last Taken 09/05/19] omeprazole 20 mg PO DAILY 08/20/14 [History Last Taken 09/05/19] tamsulosin 0.4 mg PO BID 09/05/19 [History Last Taken 09/05/19] atenolol 25 mg PO DAILY 07/10/21 [History Last Taken Unknown] Allergy/AdvReac Type Severity Reaction Status Date / Time bupropion [From Wellbutrin] Allergy Mild swelling Verified 07/10/21 13:00 Family History Father CAD (coronary artery disease) Surgical History H/O spinal fusion left shoulder scope S/P right knee arthroscopy Social History (Updated 05/27/19 @ 21:[address] Pushpa Kamara MD) Smoking Status: Current every day smoker tobacco type: cigarettes Tobacco: How many years used: 30 alcohol intake: current ROS ROS ED ROS Narrative Unresponsive episode Constitutional Constitutional ED: Reports systems reviewed and no addt'l complaints, except as documented; Denies body ache(s), change in weight or chills Eyes Eyes: Denies acute decrease in peripheral vision, change in vision, double vision or loss of vision ENT ENT ED: Reports none; Denies ear pain, lip swelling, loss taste/smell, neck pain, otalgia or sore throat Cardiovascular Cardiovascular: Reports none; Denies abdominal pain, chest pain with activity, leg edema, lightheadedness, palpitations, rapid heart rate or syncope Respiratory/Chest Respiratory/Chest: Reports none; Denies change in mental status, dry cough, dyspnea, hemoptysis, shortness of breath at rest or shortness of breath with exertion Gastrointestinal Gastrointestinal: Reports none; Denies abdominal pain, change in stool character, diarrhea, hematemesis, hematochezia, melena, rectal bleeding or vomiting Genitourinary Genitourinary ED: Reports none and other Details: Urinary incontinence ; Denies abdominal discomfort, anuria, dysuria, genital pain or polyuria Musculoskeletal Musculoskeletal: Reports none; Denies arthralgias, back pain, difficulty walking, extremity pain, muscle weakness or myalgias Integumentary Reports none; Denies abscess or rash Neurologic Neurologic: Reports none; Denies abnormal gait, confusion, focal weakness, frequent falls, headache(s), loss of vision, numbness, paresthesias, radicular pain, vertigo or weakness Psychiatric Psychiatric: Reports systems reviewed and no addt'l complaints, except as documented and none; Denies behavioral changes, confusion, difficulty concentrating, hallucinations, suicidal ideation, tactile hallucinations or visual hallucinations Endocrine Endocrinology: Denies none, cold intolerance, excessive sweating, fatigue or heat intolerance Hematologic/Lymphatic Hematologic/Lymphatic: Reports none; Denies anemia, easy bleeding or easy bruising Allergic/Immunologic Allergic/Immunologic ED: Denies as per HPI, none, lip swelling, mouth swelling, throat swelling, tongue swelling or hives EXAM Physical Exam Const Vital Signs: 07/10/21 12:55 07/10/21 13:01 07/10/21 13:43 Temperature 98.5 F Temperature Source Oral Pulse Rate 64 96 Pulse Rate [Lying] 88 Pulse Rate [Sitting (for 1 minute prior to obtaining)] 91 Pulse Rate [Standing (for 1 minute prior to obtaining)] 102 H Respiratory Rate 20 H 18 Blood Pressure 167/77 H 140/69 H Blood Pressure [Lying] 150/72 H Blood Pressure [Sitting (for 1 minute prior to obtaining)] 161/74 H Blood Pressure [Standing (for 1 minute prior to obtaining)] 144/78 H Blood Pressure Mean 107 92 Blood Pressure Mean [Lying] 98 Blood Pressure Mean [Sitting (for 1 minute prior to obtaining)] 103 Blood Pressure Mean [Standing (for 1 minute prior to obtaining)] 100 Pulse Ox 96 94 Oxygen Delivery Method Room Air Room Air Positive well nourished and well developed General Appearance ED: well developed and NAD HEENT Reports TM's clear and moist mucous membranes normocephalic and atraumatic; Negative for trauma or tenderness Tympanic Membrane ED: Yes TM's clear Eyes PERRL and EOMs intact bilaterally General Eye ED: Negative for pale conjunctiva or scleral icterus Neck no lymphadenopathy, supple and no JVD General: Negative for tenderness Chest Wall inspection of chest normal and palpation of chest normal Chest: Negative for tenderness Resp normal respiratory effort and clear to auscultation bilaterally Effort and Inspection: Negative for respiratory distress or pain with movement Auscultation: Negative for rhonchi, wheezes or diminished lung sounds Cardio regular rate, regular rhythm, S1 normal heart sound, S2 normal heart sound and no murmurs Peripheral Pulses: pulses 2+ throughout GI normal to inspection, nondistended, normoactive bowel sounds, soft to palpation, non-tender, non-distended and no masses Back/Spine no CVA tenderness and no thoracic nor lumbar tenderness Extremity normal to inspection General Extremety ED: Negative for edema General Extremity: Negative for edema Neuro oriented x3, CN's II-XII intact bilaterally, no sensory deficits noted and gait normal Sensorium / Orientation: awake, alert, oriented to person, oriented to place and oriented to time Motor Exam: strength 5/5 throughout and strength abnormal Psych mental status grossly normal Skin no rashes or lesions noted and no wounds MDM MDM MDM Narrative Medical decision making narrative: IV line established on arrival. Patient placed on a monitoring coordinator. Lab work was unremarkable. CT of brain was unremarkable. At this point etiology of syncope or mental status changes unclear. In the differential would be syncope versus seizure although there was no seizure activity noted. I recommended admission for observation. Patient was seen by hospitalist in the department and patient is refusing admission now and states wants to go home. Patient understands my concerns that I do not have a clear etiology for his episode. He is advised not to drive. He will sign out AGAINST MEDICAL ADVICE. Patient understands he may return at any time for furth er evaluation or condition should worsen anyway. Patient has an appointment with his virtual customer assistant tomorrow. Lab Data Attestation: I reviewed the patient's lab results. Labs: Laboratory Results - last 24 hr 07/10/21 07/10/21 07/10/21 13:05 13:05 13:05 WBC 8.0 RBC 4.98 Hgb 14.4 Hct 44.4 MCV 89.2 MCH 28.9 MCHC 32.4 RDW Std Deviation 43.7 RDW Coeff of Zachary 13.3 Plt Count 317 MPV 9.6 Immature Gran % (Auto) 0.500 Neut % (Auto) 63.0 Lymph % (Auto) 29.4 Tama % (Auto) 5.5 Eos % (Auto) 1.1 Baso % (Auto) 0.5 Absolute Neuts (auto) 5.0 Absolute Lymphs (auto) 2.34 Nucleated RBC % 0 Sodium 137 Potassium 4.2 Chloride 105 Carbon Dioxide 24.0 Anion Gap 8 BUN 21 H Creatinine 0.93 Estim Creat Clear Calc 94.63 Est GFR (MDRD) Af Amer 104 Est GFR (MDRD) Non-Af 86 BUN/Creatinine Ratio 22.7 H Glucose 142 H Calcium 9.0 Troponin I High Sens 4 Urine Opiates Screen Urine Methadone Screen Ur Barbiturates Screen Ur Phencyclidine Scrn Ur Amphetamines Screen MDMA (Ecstasy) Screen U Benzodiazepines Scrn Urine Cocaine Screen U Cannabinoids Screen Ur Drug Screen Comment Ethyl Alcohol < 3.0 07/10/21 14:21 WBC RBC Hgb Hct MCV MCH MCHC RDW Std Deviation RDW Coeff of Zachary Plt Count MPV Immature Gran % (Auto) Neut % (Auto) Lymph % (Auto) Tama % (Auto) Eos % (Auto) Baso % (Auto) Absolute Neuts (auto) Absolute Lymphs (auto) Nucleated RBC % Sodium Potassium Chloride Carbon Dioxide Anion Gap BUN Creatinine Estim Creat Clear Calc Est GFR (MDRD) Af Amer Est GFR (MDRD) Non-Af BUN/Creatinine Ratio Glucose Calcium Troponin I High Sens Urine Opiates Screen NEGATIVE Urine Methadone Screen NEGATIVE Ur Barbiturates Screen NEGATIVE Ur Phencyclidine Scrn NEGATIVE Ur Amphetamines Screen POSITIVE H MDMA (Ecstasy) Screen NEGATIVE U Benzodiazepines Scrn NEGATIVE Urine Cocaine Screen NEGATIVE U Cannabinoids Screen POSITIVE H Ur Drug Screen Comment Ethyl Alcohol Radiography Chest X-Ray - ED: 1 View Diagnostic Testing: Clinical Impression(s) from Imaging Studies Brain CT 07/10/21 13:13 IMPRESSION: Normal unenhanced CT scan of the brain. Electronically Signed: Justin Garcia MD at 14:15 EDT , Chest X-Ray 07/10/21 13:13 IMPRESSION: Normal x-ray examination of the chest. Electronically Signed: Justin Garcia MD at 14:29 EDT , 1 view chest x-ray obtained interpreted by myself as no acute disease process. Radiology in agreement. EKG Initial EKG: Attestation: I personally reviewed and interpreted this EKG as follows: Comments: Sinus rhythm with a ventricular rate of 93 bpm with no acute ST segment changes Prior EKG tracings: available for review Prior: Unchanged Discharge Plan Triage Chief Complaint: Seizure ED Provider: Michael Mark Dx/Rx/DC Orders Clinical Impression: Acute alteration in mental status, Syncope Instructions: ED ALOC, ED Fainting, Uncertain Cause Prescriptions: No Action losartan 50 MG tablet 50 mg PO DAILY RF: 0 omeprazole 20 MG capsule 20 mg PO DAILY RF: 0 tamsulosin 0.4 MG capsule 0.4 mg PO BID RF: 0 atenolol 25 mg Tablet 25 mg PO DAILY RF: 0 [facility] [Primary Care Provider] - As soon as possible Disposition Disposition: Against Medical Advice
[2021-07-10] MEDS: 0.9% Normal Saline 1,000 ML 150 ML IV (13:21)
[2021-07-10 13:28] LABS: Absolute Lymphocyte Count 2.34 X10^3/uL (0.83-4.51); Basophil# 0.04 X10^3/uL; Basophil% 0.5 % (0-1); Eosinophil# 0.09 X10^3/uL; Eosinophils% 1.1 % (0-5); Hematocrit 44.4 % (40-54); Hemoglobin 14.4 g/dL (13.0-16.5); Lymphocyte # 2.34 X10^3/ul (0.83-4.51); Lymphocyte % 29.4 % (19-41); Mean Corp Hgb Conc 32.4 g/dL (32-36); Mean Corpuscular Hgb 28.9 pg (27.0-32.0); Mean Corpuscular Volume 89.2 fL (80-94); Mean Platelet Vol. 9.6 fl (6.2-12.0); Monocyte# 0.44 X10^3/uL; Monocyte% 5.5 % (0-10); NRBC Flagged by Analyzer 0 % (0-5); Neutrophil # 5.02 X10^3/uL (2.7-7.7); Platelet Count 317 K/mm3 (150-450); RBC Distribution Width CV 13.3 % (11.6-14.6); RBC Distribution Width SD 43.7 fl (35.1-43.9); Red Blood Count 4.98 M/mm3 (4.6-6.2)
[2021-07-10 13:42] LABS: Anion Gap 8 (5-15); BUN 21 mg/dL (7-18); BUN/Creat Ratio 22.7 RATIO (10-20); Chloride 105 mmol/L (98-107); Creatinine, Serum 0.93 mg/dL (0.70-1.30); EST Glomerular Filtration Rate 86 mL/min (>60); Est Glom Filt Rate - Afr Amer 104 mL/min (>60); Estimated Creatinine Clearance 94.63 ml/min; Glucose 142 mg/dL (74-106); Potassium 4.2 mmol/L (3.5-5.1); Sodium Level 137 mmol/L (136-145); Troponin-I HS 4 pg/mL (3.0-78.0)
[2021-07-10 13:43] VITALS: BP 144/78; BP 150/72; BP 161/74; PULSE 102; PULSE 88; PULSE 91
[2021-07-10 13:55] LABS: Alcohol, Blood (Medical)-Serum < 3.0 mg/dL
[2021-07-10 14:43] LABS: Amphetamine Urine VISTA POSITIVE (<1000 ng/mL); Barbiturate Urine VISTA NEGATIVE (< 200 ng/mL); Benzodiazepine Urine VISTA NEGATIVE (< 200 ng/mL); Cocaine Urine VISTA NEGATIVE (< 300 ng/mL); Ecstacy Urine VISTA NEGATIVE (< 500 ng/mL); Methadone Urine VISTA NEGATIVE (< 300 ng/mL); PCP Urine VISTA NEGATIVE (< 25 ng/mL); THC Urine VISTA POSITIVE (< 50 ng/mL); Vista UDS pH Range 5
--- NOTE | 2021-07-10 14:59 | PCM.HOSP.N ---
Hospitalist Note I was read requested by the emergency room physician to see this 65-year-old white male that had an episode at home today and was brought to the ER for evaluation by his . His stated that she heard a noise in the basement and a snoring sound, she found her on the floor and had a hard time waking him up. She states he appeared overly drowsy, he had slurring of his speech that lasted for few minutes and then he woke up totally. Patient did not remember the episode. He did have urinary incontinence. I explained to the patient and his that he could be placed overnight in observation and monitored on telemetry, I told him that he could also get an EEG done to rule out any seizure activity. After presenting these options, the and the patient both agreed that he would go home and follow-up with his family physician. He understands that he is not to drive or operate heavy machinery until he is seen by another physician for reevaluation. He is to come back to the emergency room if he has any more problems. I relayed this to Dr. Ford the emergency room physician.
== END 2021-07-10 15:00 | disposition left against medical advice (07) ==
PROVIDERS: Emergency Provider Emergency Medicine; Visit Provider Emergency Medicine
DX: R41.82 Altered mental status, unspecified (principal); R55 Syncope and collapse; R32 Unspecified urinary incontinence; I10 Essential (primary) hypertension; F17.210 Nicotine dependence, cigarettes, uncomplicated; Z79.899 Other long term (current) drug therapy
CPT/HCPCS: 70450; 71045; 80048; 80307; 82077; 84484; 85025; 93005; 96360; 96361; 99285; J7030; A4216

== ENCOUNTER 2022-07-14 12:30 | Outpatient (RCR) | payer OTHER, SELFPAY ==
--- NOTE | 2022-05-15 13:32 | HP.PTEVAL_ITS ---
Patient's Visit Information JEISON WHATLEY is a 66 year old M referred to Physical Therapy by [facility] with a diagnosis of s/p glioblastoma removal. Date of Evaluation: 05/15/22 Physical Therapist: Helder Ureña, PATRICKT, OCS, CSCS - Visit Plan Frequency: 2x /Week Duration: 2 Months Plan: 2x/week for 6-8 weeks for aquatic therapy for: 1. UE PROM and strength scap and RC and posture. 2. LE and core strength and conditioning and include HS adn quad stretching. Please teach for I after conclusion of therapy. - Subjective Brain tumor last spring and operate din September, radiationa dn chemo in October and November adn slept allt he time then was very tired and got very weak. R shoulder was bothering him but he could not do much about it. Can lift arms above head but hard to use it. Fell of tractor two years ago and hurt shoulder at that lupe e. No MRI but thinks cuff is torn. Had both of them repaired in the past. Pain is 5/10 in R shoulder but 4/10 at rest. Helped a friend this weekend do a ceiling knock down and it really hurt. Sleep is about half of what it should be. Shoulder is what keeps him up. Cannot drink anymore due to chemo, used to ba 12 pack a week. Cannabis seems to help. 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 Hard to haul wood up to porch and needs frequent breaks. Wants to work on core strength adn shoulder. Lives with and has steps whcih are no problem, Basic ADLs are OK, needs handrail on steps. - Pain R shoulder Pain Intensity (Out of 10): 4 Pain Intensity Range: 4, 5 - Objective Walks slightly hunched over and stiff but I without AD. Good balance. Trasnfer bed and chair I. Steps with one rail I and reciprocal. Forward head posture. UE AROM L shoulder to 110 elevation, R to 120 but painful, ext rotation 40 L and 35 R, IR to L5. L shoulder stiff but R painful and weak, 3 ext rotation, 4 IR, 3+ elevation on r and 4 on L. reflexes bi, tri, patella and achilles 2/3. Sensation EU/LE grossly WNL to gross light touch. LE AROM WFL with tightness apparent in quads and HS. strength LE 4/5 without myotomal problems. Hip abd and extension 4-. Coordination to reciprocal toe tap is normal, able to heel raise and toe raise. - slump and SLR. - ext rotation lag test R and drop arm although weak on R and painful arc. - Balance/Special Test Scores Functional Gait Assessment Score: 28 % Disability: 6.6700 CATSIB Score (Max score 120 seconds): 120 Quick DASH Score: 63.6350 - Goals Goal 1:: B UE AROM overhead to 130 AROM without increased pain Goal Time Frame: 6-8 Weeks Goal 2:: Pt feel back to baseline strength as prior to brain surgery last year. Goal Time Frame: 6-8 Weeks Goal 3:: I pool ex for chcf management as he will join after therapy Goal Time Frame: 8-12 Weeks Goal 4:: qucikdash 15 or better Goal Time Frame: 6-8 Weeks - Rehabilitation Potential Physical Therapy Diagnosis: shoulder pain and overall weakness Rehabilitation Potential: Fair - Anticipated Interventions Patient/Client Instruction: Educate patient on: Condition, Plan of Care For the Purpose of:: To decrease pain, To increase ROM, To improve muscle performance and motor function, To increase tolerance to activity/condition/position, To improve ability of physical actions for home/community/work/leisure, To improve gait and locomotor functions Therapeutic Exercise to Include: Strength training, Postural training, Flexibilty training, In an aquatic setting, Passive ROM, Active ROM For the Purpose of:: To decrease pain, To increase ROM, To improve nutrient delivery to tissue, To improve muscle performance and motor function, To increase tolerance to activity/condition/position, To improve ability of physical actions for home/community/work/leisure Thank you for the opportunity to evaluate your patient. For Medicare and Medicare HMO plans, please review the plan of care and approve it. It will need to be FAXED BACK to us at [phone] for Medicare purposes. For Medicare only, by signing this I certify the plan of care. Please let me know if there are questions or concerns regarding this plan of care. Physician Signature: Date:
--- NOTE | 2022-07-14 13:11 | HP.PTDCSUM_ITS ---
It has been my pleasure to treat JEISON WHATLEY referred by [facility], with the diagnosis of s/p glioblastoma removal for a total of 14 visit(s). Discharge Date: 07/14/22 Please see the following information for a summary of their discharge status. Subjective: More ROM in shoulder and just a little sore. Still tired but that will come. Will go to [facility] to continue.Shoulder is constantly sore and needs surgery but doesn't want it. Sleeps fairly well. Doing phase 3 YTB 2x10 at home. R shoulder Pain Intensity (Out of 10): 2 % Improvement: 80 Objective/Function: Full AROM UE elevation, er 40 R and 55 L. strength is 4- R er and 4 L. IR 4 B. flexion 4- R and 3+ L. Overall doing well adn plans to continue shoulder exercises via HEP and gym exercises via [employer] program. Goal 1:: B UE AROM overhead to 130 AROM without increased pain Goal Progress: Goal Met Goal 2:: Pt feel back to baseline strength as prior to brain surgery last year. Goal Progress: Progressing Goal 3:: I pool ex for intermediate management as he will join after therapy Goal Progress: Goal Met Goal 4:: qucikdash 15 or better Goal Progress: Progressing Goal 5:: I gym program for shoulders and function Goal Progress: Goal Met Plan: d/c If there are questions or concerns regarding this patient's physical therapy, please feel free to call me at [phone]. Thank you for the referral of this patient. Sincerely, Helder Ureña, DPT, OCS, CSCS Balance/Gait/Functional tests - Balance/Special Test Scores Functional Gait Assessment Score: 28 % Disability: 6.6700 CATSIB Score (Max score 120 seconds): 120 Lower Extremity Functional Score: 78 Quick DASH Score: 47.5000
== END 2022-07-14 15:00 | disposition home or self-care (01) ==
LOC: PT 12:30
DX: D49.6 Neoplasm of unspecified behavior of brain (principal)
CPT/HCPCS: 97110; 97113; 97162; 97530

== ENCOUNTER 2023-01-02 12:48 | Observation (INO) | payer MEDICARE, OTHER, SELFPAY ==
[2023-01-02] VITALS (12 sets, daily range): BP systolic 115–171; BP diastolic 64–90; PULSE 52–65; RESP 16–30; TEMP 35.5–37.1; O2SAT 97–100; BMI 27.2; BMI 23.4
[2023-01-02 13:07] LABS: Allen Test Positive; Base Excess -1 mmol/L (-2 to +2); Bicarbonate 24.4 mmol/L (22-26); Blood Gas Specimen Type ART; Mode Not entered; O2 Delivery Device NRB; PO2 175 mmHG (75-100); SITE L Radial; SO2 100 % (95-99); Total Carbon Dioxide 26 mmol/L; pCO2 42.3 mmHg (35-45); pH 7.37 (7.35-7.45)
--- NOTE | 2023-01-02 13:23 | CT_ITS ---
STUDY: CT BRAIN WITHOUT CONTRAST REASON FOR EXAM: Male, 67 years old. Altered mental status. History of brain tumor. RADIATION DOSAGE (If Supplied By Facility): CTDIvol = ( 44.99 ) mGy, DLP = ( 846.73 ) mGycm TECHNIQUE: Transaxial CT imaging of the brain was performed without administration of intravenous contrast material. Individualized dose optimization techniques were used for this CT. COMPARISON: Comparison is made with prior study July 10, 2021. FINDINGS: Normal soft tissue structures. The patient is status post bilateral frontal craniotomy. Normal size ventricles and extra-axial spaces for the patient''s age. There now is evidence of a encephalomalacia and possible edema in the anterior aspect of the right frontal lobe. Similar appearance is seen along the inferior aspect of the left frontal lobe as well as in the left paraventricular region in the right left frontal lobe. This may represent a neoplastic process with surrounding edema. This is new as compared to prior study. Normal basal ganglia and thalami. Normal brainstem. Normal cerebellum. There is no intracranial hemorrhage. There are no findings of an acute ischemic infarction. Partial opacification of the right maxillary sinus. CT/Brain/Head without Contrast IMPRESSION: Status post bilateral frontal craniotomy. Findings suggestive of possible neoplastic process in the anterior aspect of the left frontal lobe with surrounding edema. Focal encephalomalacia in the right frontal lobe. No shift of the midline is seen. Electronically Signed: Mayur Gonzalez MD at 14:52 EDT ,
--- NOTE | 2023-01-02 13:23 | RAD_ITS ---
STUDY: X-RAY CHEST REASON FOR EXAM: Male, 67 years old. Dyspnea TECHNIQUE: Single AP portable view of the chest. COMPARISON: Comparison is made with prior study July 10, 2021. FINDINGS: EKG electrodes are seen. Hyperinflation. Mild increased markings at the right lung base suggestive of right basilar atelectasis. Normal size heart. Normal mediastinum and nereyda. Normal visualized pulmonary arteries. There is atherosclerotic calcification of the aortic arch with tortuosity. There are diffuse degenerative changes of the visualized thoracic spine. Normal visualized ribs, clavicles, and shoulders. There is no demonstrated abnormality of the visualized soft tissue structures of the upper abdomen. RAD/Chest 1 View (Portable) IMPRESSION: Hyperinflation. Increased markings at the right lung base suggestive of atelectasis. Electronically Signed: Mayur Gonzalez MD at 14:57 EDT ,
--- NOTE | 2023-01-02 13:25 | EKG12_ITS ---
Test Reason : Blood Pressure : / mmHG Vent. Rate : 056 BPM Atrial Rate : 056 BPM P-R Int : 142 ms QRS Dur : 092 ms QT Int : 414 ms P-R-T Axes : 014 055 076 degrees QTc Int : 399 ms Sinus bradycardia Otherwise normal ECG When compared with ECG of 10-JUL-2021 13:08, Vent. rate has decreased BY 37 BPM Confirmed by SUNIL WALLACE, DAMARIS ([id number]), supervising film or videotape editor ELVIA NOVA ([id number]) on 01/08/2023 2:16:02 PM Referred By: RIMA Confirmed By:SAM BARBER MD
[2023-01-02 13:57] LABS: Absolute Lymphocyte Count 2.88 X10^3/uL (0.83-4.51); Absolute Neutrophil Count 1.7 X10^3/uL (2.0-7.7); Basophil# 0.01 X10^3/uL; Basophil% 0.2 % (0-1); Eosinophil# 0.03 X10^3/uL; Eosinophils% 0.6 % (0-5); Hematocrit 33.4 % (40-54); Hemoglobin 10.9 g/dL (13.0-16.5); Lymphocyte # 2.88 X10^3/ul (0.83-4.51); Lymphocyte % 57.8 % (19-41); Mean Corp Hgb Conc 32.6 g/dL (32-36); Mean Corpuscular Hgb 33.2 pg (27.0-32.0); Mean Corpuscular Volume 101.8 fL (80-94); Mean Platelet Vol. 9.9 fl (6.2-12.0); Monocyte# 0.24 X10^3/uL; Monocyte% 4.8 % (0-10); Neutrophil # 1.69 X10^3/uL (2.7-7.7); Platelet Count 207 K/mm3 (150-450); RBC Distribution Width CV 18.2 % (11.6-14.6); RBC Distribution Width SD 64.6 fl (35.1-43.9); Red Blood Count 3.28 M/mm3 (4.6-6.2)
[2023-01-02 14:05] LABS: Prothrombin Time (Protime)PT. 12.9 SECONDS (11.7-14.9)
[2023-01-02 14:06] LABS: Partial Thromboplast Time 24.5 Seconds (24.1-36.2)
[2023-01-02 14:09] LABS: ALB/GLOB Ratio 0.9 RATIO (0.9-2.4); AST(SGOT) 18 U/L (15-37); Alanine Aminotransfer ALT/SGPT 27 U/L (16-61); Albumin, Serum 2.8 g/dL (3.2-5.0); Alkaline Phosphatase 65 U/L (45-117); Anion Gap 3 (5-15); BUN 28 mg/dL (7-18); BUN/Creat Ratio 23.9 RATIO (10-20); Calcium,Total 7.9 mg/dL (8.5-10.1); Chloride 111 mmol/L (98-107); Creatinine, Serum 1.17 mg/dL (0.70-1.30); EST Glomerular Filtration Rate 66 mL/min (>60); Est Glom Filt Rate - Afr Amer 79 mL/min (>60); Glucose 143 mg/dL (74-106); Potassium 3.6 mmol/L (3.5-5.1); Protein, Total 5.8 g/dL (6.4-8.2); Sodium Level 144 mmol/L (136-145); Troponin-I HS (w/2H Reflex) 8 pg/mL (3.0-78.0)
[2023-01-02 14:20] LABS: Bacteria 0 SEEN /hpf (None Seen); Mucous, Urine 0 SEEN /hpf (<or=2+); Red Blood Cells-Urine 0 SEEN /hpf (0-5); Squamous Epithelial Cells - UA 0 SEEN /hpf (0-5); White Blood Cells 0 SEEN /hpf (0-5)
[2023-01-02 14:21] LABS: Color, Urine Yellow (Yellow); Glucose, Dipstick Normal (Normal); Ketone-Dipstick Negative (Negative); Leukocyte Esterase-Dipstick 25 /ul (Negative); Nitrite-Dipstick Negative (Negative); Occult Blood-Urine 10 /ul (Negative); Protein-Dipstick 30 mg/dl (Negative); Urine Clarity Sl. Cloudy (Clear); Urine Urobilinogen 4 mg/dl (Normal)
[2023-01-02 14:22] LABS: Urine Bilirubin Dipstick 1 mg/dL (Negative)
[2023-01-02 14:24] LABS: Valproic Acid (Depakene) Level 10 ug/mL (50-100)
[2023-01-02 14:26] LABS: Lactic Acid 1.4 mmol/L (0.4-1.9)
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
[2023-01-02 15:48] LABS: Reflex Troponin-HS? (from REC) Y
[2023-01-02 16:47] LABS: Troponin-I HS 8 pg/mL (3.0-78.0)
--- NOTE | 2023-01-02 17:36 | HP.PCM.HOS_ITS ---
HPI - General General Date of Admission: 01/02/23 Date of Service: 01/02/23 Chief Complaint: Syncopal event with possible aspiration, apneic episode. HPI Narrative The patient is a 67 y/o M w/ PMHx: Anxiety and Depression, Known Glioblastoma, BPH, HTN, GERD, Tobacco use, Suspected COPD who presents to the [facility] ED on 01/02/23 with history of dyspnea worsening on day of presentation prompting EMS call who noted that patient had a syncopal event upon their evaluation and was in respiratory distress requiring bagging on route to hospital eventually becoming responsive to tactile and verbal stimuli but very lethargic. Patient upon further time in the ED improved, able to keep his eyes open and interact. Work-up in the ED included T96, heart rate 57, BP 123/69, respiratory rate 20, 99% on a nonrebreather 15 L, ABG with pH 7.37, oxygen saturation 100%, PaO2 175, PCO2 42.3 on a nonrebreather--> BP 134/64, heart rate 52, respiratory rate 30, 100% on 6 L nasal cannula eventually however in the ED patient returned to room air noted to be 97% on room air and oxygen was removed as needed, none and he was noted to be appropriate, CBC with WC 5, hemoglobin 10.9, MCV 101.8, platelet 207 with increased immature granulocytes although absolute neutrophil count 1.7, unremarkable coags, CMP with chloride 111, anion gap 3, BUN/creatinine 28/1.17, glucose 143, lactic acid 1.4, calcium 7.9, hepatic profile otherwise not marked appearing, troponin 8-->delta 8, urine with specific IV elevated 1.020, protein 30, occult blood 10, negative nitrite, leukocyte Estrace 25 with no obvious evidence of UTI, valproic acid 10, CT of the brain with evidence status post bilateral frontal craniotomy with findings suggestive of possible neoplastic process in the anterior aspect of the left frontal lobe with surrounding edema with focal encephalomalacia in the right frontal lobe with no midline shift seen, chest x-ray hyperinflation with increased markings in the right lung base suggestive of atelectasis, EKG with SB with no acute evidence of ischemia, blood culture x2 pending per ED. given patient's significant history and noted ongoing cancer with edema in the brain strongly recommended transfer patient to tertiary facility however was insistent that he remain at [facility] and understood that there was no access to onsite neurology or neurosurgery. [facility] Medical History Anxiety and depression BPH (benign prostatic hyperplasia) Brain tumor GERD (gastroesophageal reflux disease) Glioblastoma Hypertension Tobacco use Home Medications tamsulosin 0.4 mg capsule 0.8 mg PO QHS prostate 09/05/19 [History Last Taken 09/05/19] atenolol 25 mg tablet 25 mg PO DAILY blood pressure 07/10/21 [History Last Taken Unknown] dexamethasone 2 mg tablet 2 mg PO Q12H 01/02/23 [History Last Taken Unknown] divalproex 250 mg tablet,extended release 24 hr 250 mg PO QHS mood 01/02/23 [History Last Taken Unknown] duloxetine 20 mg capsule,delayed release sprinkle 20 mg PO DAILY depression 01/02/23 [History Last Taken Unknown] ergocalciferol (vitamin D2) 1,250 mcg (50,000 unit) capsule (Vitamin D2) 1,250 mcg PO QMONTH supplement 01/02/23 [History Last Taken Unknown] finasteride 5 mg tablet 5 mg PO DAILY prostate 01/02/23 [History Last Taken Unknown] gabapentin 300 mg capsule 300 mg PO Q8H neuropathy 01/02/23 [History Last Taken Unknown] levetiracetam 500 mg tablet 500 mg PO Q12H 01/02/23 [History Last Taken Unknown] lomustine 100 mg capsule (Gleostine) 200 mg PO UD cancer 01/02/23 [History Last Taken Unknown] lomustine 40 mg capsule 40 mg PO UD cancer 01/02/23 [History Last Taken Unknown] melatonin 3 mg tablet 6 mg PO QHS sleep 01/02/23 [History Last Taken Unknown] ondansetron HCl 8 mg tablet 8 mg PO Q8H PRN nausea/vomiting 01/02/23 [History Last Taken Unknown] pantoprazole 20 mg tablet,delayed release 20 mg PO DAILY 01/02/23 [History Last Taken Unknown] senna-docusate sodium tablet 8.6 - 50 tab PO BID 01/02/23 [History Last Taken Unknown] silver sulfadiazine 1 % topical cream (Silvadene) 1 applic topical BID carpet burn 01/02/23 [History Last Taken Unknown] thiamine HCl (vitamin B1) 100 mg tablet 100 mg PO DAILY supplement 01/02/23 [History Last Taken Unknown] Allergy/AdvReac Type Severity Reaction Status Date / Time bupropion [From Wellbutrin] Allergy Mild swelling Verified 07/10/21 13:00 Family History (Updated 01/02/23 @ 20:[address] Meri Hahn MD) Father CAD (coronary artery disease) Mother Diabetes Surgical History H/O spinal fusion History of craniotomy History of shoulder surgery S/P right knee arthroscopy Social History (Updated 01/02/23 @ 20:[address] Meri Hahn MD) household members: spouse Smoking Status: Current every day smoker tobacco type: cigarettes Smoking packs per day: 0.25 Smoking cigarettes per day: 5.0 Tobacco: How many years used: 30 alcohol intake: former substance use type: does not use ROS ROS Narrative Admission Review of Systems: CONSTITUTIONAL: No weight loss, fever, chills, + weakness or fatigue. HEENT: Eyes: No visual loss, blurred vision, double vision or yellow sclerae. Ears, Nose, Throat: No hearing loss, sneezing, congestion, runny nose or sore throat. SKIN: No rash or itching, lesions, wounds. CARDIOVASCULAR: + Syncopal event, chronic BL LE edema. No chest pain, chest pr essure or chest discomfort, palpitations, orthopnea. RESPIRATORY: + Apneic episode suspected per family possibly EMS with syncopal event, dyspnea. No marked recent cough or sputum, wheezing, hemoptysis. GASTROINTESTINAL: + Anorexia. No nausea, vomiting or diarrhea, abdominal pain, melena, BRBPR. GENITOURINARY: No dysuria, frequency, urgency or retention. NEUROLOGICAL: + Chronic issues with intermittent confusion, headache with known glioblastoma with edema. + Syncopal event. No paralysis, ataxia, numbness or tingling in the extremities, focal weakness, change in bowel or bladder control, seizure. MUSCULOSKELETAL: + muscle, back pain, joint pain or stiffness. HEMATOLOGIC: + anemia, easy bleeding or bruising. LYMPHATICS: No enlarged nodes. No history of splenectomy. PSYCHIATRIC: + history of depression or anxiety. ENDOCRINOLOGIC: No reports of sweating, cold or heat intolerance. No polyuria or polydipsia. ALLERGIES: No history of asthma, hives, eczema or rhinitis. Vital Signs Vital Signs Vital Signs: 01/02/23 12:50 01/02/23 12:56 01/02/23 13:13 Temperature 96 F L Temperature Source Temporal Pulse Rate 57 L 53 L Respiratory Rate 20 H 17 Respiratory Effort Short of Breath Respiratory Pattern Normal Blood Pressure 123/69 H 115/83 H Blood Pressure Mean 87 93 Pulse Ox 99 100 Oxygen Delivery Method Non-Rebreather Non-Rebreather Nasal Cannula Oxygen Flow Rate (L/min) 15 6 01/02/23 14:36 01/02/23 14:36 01/02/23 15:02 Temperature 97.5 F L Temperature Source Oral Pulse Rate 52 L 54 L Respiratory Rate 30 H 18 Respiratory Effort Respiratory Pattern Blood Pressure 134/64 H 151/75 H Blood Pressure Mean 87 100 Pulse Ox 100 100 Oxygen Delivery Method Nasal Cannula Nasal Cannula Nasal Cannula Oxygen Flow Rate (L/min) 6 6 5 01/02/23 15:02 01/02/23 16:52 01/02/23 16:52 Temperature 97.5 F L 97.3 F L Temperature Source Oral Oral Pulse Rate 54 L 58 L 58 L Respiratory Rate 18 21 H 21 H Respiratory Effort Respiratory Pattern Blood Pressure 151/75 H 169/81 H 169/81 H Blood Pressure Mean 100 110 110 Pulse Ox 100 100 100 Oxygen Delivery Method Nasal Cannula Nasal Cannula Nasal Cannula Oxygen Flow Rate (L/min) 5 5 5 01/02/23 17:33 01/02/23 17:33 Temperature 98.7 F Temperature Source Temporal Pulse Rate 53 L 53 L Respiratory Rate 17 17 Respiratory Effort Respiratory Pattern Blood Pressure 153/73 H 153/73 H Blood Pressure Mean 99 99 Pulse Ox 100 100 Oxygen Delivery Method Nasal Cannula Nasal Cannula Oxygen Flow Rate (L/min) 5 5 Weight Weight: 201 lb 0.985 oz Body Mass Index (BMI) 27.2 Physical Exam Narrative Physical Examination: General: Awake, alert, oriented to self, place and some recent events but upon further lengthy discussions does appear to intermittently be confused which per discussion with spouse is baseline with his underlying glioblastoma, seated upright in the bed, fatigued appearing. Skin: Normal color, normal turgor, no icterus, no cyanosis except various staged ecchymoses, occasional abrasion. HEENT: AT/NC, EOMI, PERRLA, dry MM, no carotid bruits or JVD noted. Lungs: Diminished, greater bases, mildly increased respiratory rate but no distress, no rales, ronchi or wheezing. Heart: Bradycardic with regular rhythm; no gallop, rub audible. Abdomen: Soft, NTTP, ND, hyperactive BS, no HSM. Extremities: No cyanosis, no clubbing, bilateral lower extremity edema present. Neurological: Patient awake, alert, oriented as noted, cognitive function decreased which may be his baseline per discussion with spouse with underlying persistent glioblastoma with chronic edema on chronic steroids; pupils equally reactive to light and accommodation, cranial nerves grossly normal, moving all 4 extremities, no focal deficits, strength moderately to severely globally decreased. Psychiatric: Affect appears flat, fatigued, no acute evidence of depressive or anxiety feelings but does have underlying history. Results Lab / Micro Data 01/02/23 12:53 01/02/23 12:53 Labs: Laboratory Results - last 24 hr 01/02/23 12:53: WBC 5.0, RBC 3.28 L, Hgb 10.9 L, Hct 33.4 L, MCV 101.8 H, MCH 33.2 H, MCHC 32.6, RDW Std Deviation 64.6 H, RDW Coeff of Zachary 18.2 H, Plt Count 207, MPV 9.9, Immature Gran % (Auto) 2.600 H, Neut % (Auto) 34.0 L, Lymph % (Auto) 57.8 H, Alexander % (Auto) 4.8, Eos % (Auto) 0.6, Baso % (Auto) 0.2, Absolute Neuts (auto) 1.7 L, Absolute Lymphs (auto) 2.88, Nucleated RBC % 4.0, PT 12.9, INR 1.0, APTT 24.5, Sodium 144, Potassium 3.6, Chloride 111 H, Carbon Dioxide 30.0, Anion Gap 3 L, BUN 28 H, Creatinine 1.17, Estim Creat Clear Calc 65.40, Est GFR (MDRD) Af Amer 79, Est GFR (MDRD) Non-Af 66, BUN/Creatinine Ratio 23.9 H , Glucose 143 H, Calcium 7.9 L, Total Bilirubin 0.40, AST 18, ALT 27, Alkaline Phosphatase 65, Troponin I High Sens 8, Total Protein 5.8 L, Albumin 2.8 L, Globulin 3.0, Albumin/Globulin Ratio 0.9 01/02/23 13:55: Lactic Acid 1.4, Valproic Acid 10 L 01/02/23 14:15: Urine Color Yellow, Urine Clarity Sl. Cloudy, Urine pH 5.0, Ur Specific [place] 1.020, Urine Protein 30 H, Urine Glucose (UA) Normal, Urine Ketones Negative, Urine Occult Blood 10 H, Urine Nitrite Negative, Urine Bilirubin 1 H, Urine Urobilinogen 4 H, Ur Leukocyte Esterase 25 H, Urine RBC 0 SEEN, Urine WBC 0 SEEN, Ur Squamous Epith Cells 0 SEEN, Urine Bacteria 0 SEEN, Urine Mucus 0 SEEN 01/02/23 14:58: Ammonia 25.0 01/02/23 16:10: Troponin I High Sens 8 ABG Data ABG results: ABG 01/02/23 13:02 Specimen Type ART Sample Site L Radial pH 7.37 Bicarbonate Actual 24.4 Total CO2 26 Base Excess -1 O2 Saturation 100 H O2 % 100.0 ABG pCO2 42.3 ABG pO2 175 H Eros Test Positive O2 Delivery Device NRB Vent Mode Not entered Radiology Impression Brain CT 01/02/23 13:23 IMPRESSION: Status post bilateral frontal craniotomy. Findings suggestive of possible neoplastic process in the anterior aspect of the left frontal lobe with surrounding edema. Focal encephalomalacia in the right frontal lobe. No shift of the midline is seen. Electronically Signed: Mayur Gonzalez MD at 14:52 EDT , Chest X-Ray 01/02/23 13:23 IMPRESSION: Hyperinflation. Increased markings at the right lung base suggestive of atelectasis. Electronically Signed: Mayur Gonzalez MD at 14:57 EDT , Assessment & Plan Assessment/Plan (1) Syncope: PLAN: Plan The patient is a 67 y/o M w/ PMHx: Anxiety and Depression, Known Glioblastoma, BPH, HTN, GERD, Tobacco use, Suspected COPD who presents to the [facility] ED on 01/02/23 with history of dyspnea worsening on day of presentation prompting EMS call who noted that patient had a syncopal event upon their evaluation and was in respiratory distress requiring bagging on route to hospital eventually becoming responsive to tactile and verbal stimuli but very lethargic. Patient upon further time in the ED improved, able to keep his eyes open and interact. #1. Syncopal Event with reported earlier AM hypotension: Unclear etiology, possibly aspirated during the event given now hypoxic with initially nonrebreather now on nasal cannula, EKG in ED w/ sinus bradycardia without evidence of acute ischemia, CXR w/ hyperinflation with right lung base findings suggestive of atelectasis however as noted repeat chest x-ray following overnight hydration planned as certainly could have aspirated, initial trop normal and delta repeat similar. Will admit to PCU, place on a monitored bed to assure no acute myocardial infarction with serial cardiac enzymes and EKGs. Will maintain on fall precautions, obtain admission orthostatic and AM orthostatic VS and increase hydration if appropriate. Will obtain ECHO. PT/OT consultation to ascertain stability and discharge needs. #2. Acute hypoxia, transient requiring a nonrebreather reportedly apneic by EMS and spouse transiently, eventually transitioned to NRB and now RA, possible aspiration with #1: Unclear if potentially patient aspirated during syncopal event but currently chest x-ray with right lower lobe atelectasis however to be cautious will maintain on oxygen with wean as tolerated to room air, PRN albuterol, maintained on IV Zosyn given aspiration concerns with MRSA screen also requested, HOB, IS parameters w/ pending sputum cultures, full respiratory viral panel, COVID PCR and urine antigens. Procalcitonin requested. We will plan repeat chest x-ray in a.m. following overnight hydration. #3. Known glioblastoma status post bilateral frontal craniotomy with active neoplastic process with surrounding edema but no shift noted which per spouse is reported as chronic and unchanged: We will continue patient home Gleostine home regimen. Patient spouse is very insistent that this is stable and chronic and she will notify the [facility] oncology in the a.m. and is very adamant about declining transfer. We will continue chronic steroid regimen once clarified as currently not listed in addition to chronic AED prophylaxis. Mag and phos levels requested. #4. Hypertension: Given reported transient hypotension we will temporarily hold home atenolol, PRN hydralazine. #5. Macrocytic anemia, unclear chronicity: Admission CBC with hemoglobin 10.9, MCV 101.8, given recent history suspect likely secondary to cancer as well as cancer treatments, ANC is 1.7, will continue to trend. #6. Hyperglycemia: Likely stress response as well as possibly recent steroids but unclear, will obtain hemoglobin A1c to be cautious. #7. Tobacco Abuse: Encouraged cessation, inpatient consultation per RT, NR if desired. #8. Anxiety and depression: We will continue patient home Cymbalta and Depakote regimen with level appropriate. #9. BPH: We will continue patient home Flomax and finasteride regimen. #10. DVT prophylaxis: SCDs, defer chemoprophylaxis given findings on CT. #11. CODE status: Patient GLENDA is the who is present and living will is currently in place. Discussed CODE status at length including difference between FULL code, DNR-CCA and DNR-CC status. Following discussions about the differences in these status, requested following very lengthy discussions and several scenarios full code although she does report planned evaluation in the next several days with palliative care but adamantly states he is not comfort care. Advanced Care Planning Face to Face Time: 16 minutes. Charges/Coding Visit Charges Inpatient E&M: 72382 Init Hosp L3 Procedures Hospitalists Procedures: 38050 Advncd Care Plan 30 Min
--- NOTE | 2023-01-02 17:51 | NURSING ---
CALLED CT, SPOKE TO ADALID, SHE TOOK ALL INFORMATION.
[2023-01-02 19:33] LABS: Magnesium 2.4 mg/dL (1.6-2.6)
--- NOTE | 2023-01-02 19:51 | ECHOCS_ITS ---
Reason For Study: SYNCOPE Procedure This was a 2D Doppler, Color Flow transthoracic echocardiogram. The study was technically difficult. Contrast injection was performed. Exam performed portable in patient room. Left Ventricle Normal LV size. The estimated ejection fraction is 70 %. Normal diastology for age. No regional wall motion abnormalities noted. Right Ventricle Normal RV size. Normal systolic function. Atria Normal left atrium. Normal right atrium. No doppler evidence for ASD. Mitral Valve There is no mitral valve stenosis. No mitral valve insufficiency. Tricuspid Valve There is no tricuspid stenosis. Unable to estimate RV systolic pressure due to inadequate jet, pulmonary artery pressure probably normal. Aortic Valve Trisinus/trileaflet aortic valve. Aortic sclerosis, no stenosis. There is no aortic stenosis. No aortic valve insufficiency. Pulmonic Valve There is no pulmonic valvular stenosis. No pulmonic valve insufficiency. Great Vessels Normal aortic root. Pericardium/Pleural No pericardial effusion. Medication Diluted definity 2ml given slow IV push to enhance endocardial definition. MMode/2D Measurements & Calculations Ao root diam: 3.8 cm LAV(MOD-sp4): 50.6 ml LVAd ap4: 31.7 cm2 LVLd ap4: 8.0 cm EDV(MOD-sp4): 103.0 ml EDV(sp4-el): 106.1 ml LVAs ap4: 20.2 cm2 LVLs ap4: 7.4 cm ESV(MOD-sp4): 47.6 ml ESV(sp4-el): 46.7 ml EF(MOD-sp4): 53.8 % EF(sp4-el): 56.0 % SV(MOD-sp4): 55.5 ml SV(sp4-el): 59.4 ml LA A4 area: 19.1 cm2 LA dimension(2D): 3.4 cm TAPSE: 2.3 cm RA A4 area: 13.1 cm2 Time Measurements MV dec time: 0.24 sec Doppler Measurements & Calculations MV E max tyron: 63.3 cm/sec Lat Peak E' Tyron: 8.9 cm/sec Med Peak E' Tyron: 7.3 cm/sec MV A max tyron: 69.9 cm/sec E/E' lat: 7.1 E/E' med: 8.7 MV E/A: 0.91 MV V2 max: 88.6 cm/sec MV dec slope: 275.4 cm/sec2 Ao V2 max: 163.7 cm/sec MV max P.1 mmHg Ao max P.7 mmHg MV V2 mean: 57.5 cm/sec Ao V2 mean: 108.9 cm/sec MV mean P.5 mmHg Ao mean P.5 mmHg MV V2 VTI: 32.7 cm Ao V2 VTI: 34.3 cm AV (velocity ratio): 0.61 LV V1 max: 88.5 cm/sec PA V2 max: 99.5 cm/sec LV V1 max P.1 mmHg PA V2 mean: 77.3 cm/sec LV V1 mean P.9 mmHg LV V1 mean: 66.2 cm/sec LV V1 VTI: 20.8 cm ECHO/Echo Complete W/ Contrast Interpretation Summary The estimated ejection fraction is 70 %. Ordering Physician: Meri Hahn Referring Physician: [facility] Performed By: Susanne Gibson RCS
--- NOTE | 2023-01-02 20:12 | NURSING ---
Pt states he received the flu vaccine this year, within the last few weeks. Unsure of exact date.
[2023-01-02] MEDS: 0.9% Normal Saline (1000mL) 1,000 ML 100 ML IV (20:20)
[2023-01-02 20:51] LABS: Troponin-I HS 8 pg/mL (3.0-78.0)
[2023-01-02] MEDS: Piperacil/Tazobactam 3.375 GM in 0.9% Normal Saline (50mL MB+) 50 ML IV (21:41)
[2023-01-02] MEDS: Gabapentin 600 MG Tablet PO (21:43)
[2023-01-02] MEDS: Silver Sulfadiazine 1% Crm 50 gm Bottle 1 APPLIC TOPICAL (21:43)
[2023-01-02] MEDS: Menthol/Lanolin/Calamine/Znox 113 GM Tube 1 APPLIC TOPICAL (21:43)
[2023-01-02] MEDS: MELATONIN 3 MG TABLET 6 MG PO (21:44)
[2023-01-02] MEDS: Tamsulosin HCl 0.4 MG Capsule 0.8 MG PO (21:44)
[2023-01-02] MEDS: Divalproex (ER) 250 MG Tablet PO (21:44)
[2023-01-02] MEDS: levETIRAcetam 500 MG Tablet PO (21:44)
[2023-01-03] VITALS (8 sets, daily range): BP systolic 132–170; BP diastolic 64–86; PULSE 60–73; RESP 16–20; TEMP 36.2–36.8; O2SAT 94–100; BMI 23.4
[2023-01-03 01:52] LABS: M R Staph aureus DNA By PCR Negative (Negative); Probe Check PASS; Specimen Processing Control PASS
[2023-01-03] MEDS: Piperacil/Tazobactam 3.375 GM in 0.9% Normal Saline (50mL MB+) 50 ML IV ×3 (05:13→22:56)
--- NOTE | 2023-01-03 05:55 | RAD_ITS ---
STUDY: X-RAY CHEST REASON FOR EXAM: Male, 67 years old. Hypoxia, ? Aspiration TECHNIQUE: PA and lateral views of the chest. COMPARISON: January 02, 2023 chest x-ray FINDINGS: There is a visualized cervical spine fusion. There is a persistent blunted appearance of the right cardial phrenic angle. There is no demonstrated pleural abnormality. There is borderline cardiomegaly. Normal mediastinum and nereyda. Normal visualized pulmonary arteries. There is atherosclerotic tortuosity of the aortic arch and descending thoracic aorta. There are diffuse degenerative changes of the visualized thoracic spine. Normal visualized ribs, clavicles, and shoulders. There is no demonstrated abnormality of the visualized soft tissue structures of the upper abdomen. RAD/Chest 1 View (Portable) IMPRESSION: Right lower lobe infiltrate and/or atelectasis. Consider PA and lateral film of the chest when appropriate. Tortuous aorta. Electronically Signed: Michaela Bueno MD at 4:46 EDT Reading Location ID and State: [facility] / [place] Tel , Service support ,
[2023-01-03 06:51] LABS: Absolute Lymphocyte Count 1.17 X10^3/uL (0.83-4.51); Absolute Neutrophil Count 1.2 X10^3/uL (2.0-7.7); Basophil# 0.01 X10^3/uL; Basophil% 0.4 % (0-1); Eosinophil# 0.02 X10^3/uL; Eosinophils% 0.8 % (0-5); Hematocrit 35.2 % (40-54); Hemoglobin 11.4 g/dL (13.0-16.5); Lymphocyte # 1.17 X10^3/ul (0.83-4.51); Lymphocyte % 44.7 % (19-41); Mean Corp Hgb Conc 32.4 g/dL (32-36); Mean Platelet Vol. 9.9 fl (6.2-12.0); Monocyte# 0.13 X10^3/uL; NRBC Flagged by Analyzer 2.3 % (0-5); Neutrophil # 1.24 X10^3/uL (2.7-7.7); Neutrophil % 47.2 % (47-70); POSITIVE MORPHOLOGY YES; Platelet Count 172 K/mm3 (150-450); RBC Distribution Width SD 64.2 fl (35.1-43.9); Red Blood Count 3.45 M/mm3 (4.6-6.2); White Blood Count 2.6 K/mm3 (4.4-11.0)
[2023-01-03 07:00] LABS: Differential Indicated SCAN CRITERIA MET
[2023-01-03 07:18] LABS: Anisocytosis 2+; Macrocytosis 2+; Polychromasia RARE
[2023-01-03 07:35] LABS: ALB/GLOB Ratio 0.8 RATIO (0.9-2.4); AST(SGOT) 21 U/L (15-37); Alanine Aminotransfer ALT/SGPT 30 U/L (16-61); Albumin, Serum 2.7 g/dL (3.2-5.0); Alkaline Phosphatase 64 U/L (45-117); Anion Gap 6 (5-15); BUN 20 mg/dL (7-18); BUN/Creat Ratio 26.6 RATIO (10-20); Calcium,Total 8.2 mg/dL (8.5-10.1); Chloride 113 mmol/L (98-107); Creatinine, Serum 0.75 mg/dL (0.70-1.30); EST Glomerular Filtration Rate 109 mL/min (>60); Est Glom Filt Rate - Afr Amer 132 mL/min (>60); Estimated Creatinine Clearance 85.59 ml/min; Globulin 3.3 g/dL (2.2-4.2); Glucose 78 mg/dL (74-106); Potassium 3.9 mmol/L (3.5-5.1); Sodium Level 145 mmol/L (136-145)
[2023-01-03] MEDS: DULoxetine Hcl 20 MG Capsule PO (09:09)
[2023-01-03] MEDS: levETIRAcetam 500 MG Tablet PO ×2 (09:09→21:37)
[2023-01-03] MEDS: dexAMETHasone 4 MG Tablet 2 MG PO ×2 (09:09→16:44)
[2023-01-03] MEDS: Thiamine Hydrochloride 100 MG Tablet PO (09:09)
[2023-01-03] MEDS: Finasteride 5 MG Tablet PO (09:09)
[2023-01-03] MEDS: Gabapentin 600 MG Tablet PO ×2 (09:09→21:47)
[2023-01-03] MEDS: Menthol/Lanolin/Calamine/Znox 113 GM Tube 1 APPLIC TOPICAL ×4 (09:17→21:34)
[2023-01-03] MEDS: Silver Sulfadiazine 1% Crm 50 gm Bottle 1 APPLIC TOPICAL ×2 (09:18→21:50)
[2023-01-03 09:37] LABS: Hemoglobin A1c 4.8 % (3.8-5.6)
--- NOTE | 2023-01-03 13:56 | PN_ITS ---
Subjective Subjective Paient seen and examined. HE was drowsy but could wake and answer questions. He denied any fever, chills, cough, chest pain, palpitations, dizziness, nausea, vomiting or any other complaints. Review of systems is otherwise negative. Objective Data Objective Data Vital Signs: Vital Signs Temp Pulse Resp BP Pulse Ox O2 Del Method O2 Flow Rate 97.3 F L 61 20 H 156/73 H 100 Room Air 2 01/03/23 13:01/03/23 13:01/03/23 13:01/03/23 13:01/03/23 13:01/03/23 13:01/02/23 18:51 Oxygen Flow Rate (L/min) 2 Oxygen Delivery Method Room Air Weight: 192 lb 3.889 oz Body Mass Index (BMI) 23.4 Intake & Output: Intake and Output for Last 24 Hours 01/01/23 01/02/23 01/03/23 23:59 23:59 23:59 Intake Total 100 / 100 1198.33 / 1198.33 Output Total 650 / 650 800 / 800 Balance -550 / -550 398.33 / 398.33 Lab / Micro Data 01/03/23 05:30 01/03/23 05:30 Labs: Laboratory Results - last 24 hr 01/02/23 12:53: WBC 5.0, RBC 3.28 L, Hgb 10.9 L, Hct 33.4 L, MCV 101.8 H, MCH 33.2 H, MCHC 32.6, RDW Std Deviation 64.6 H, RDW Coeff of Zachary 18.2 H, Plt Count 207, MPV 9.9, Immature Gran % (Auto) 2.600 H, Neut % (Auto) 34.0 L, Lymph % (Auto) 57.8 H, [place] % (Auto) 4.8, Eos % (Auto) 0.6, Baso % (Auto) 0.2, Absolute Neuts (auto) 1.7 L, Absolute Lymphs (auto) 2.88, Nucleated RBC % 4.0, PT 12.9, INR 1.0, APTT 24.5, Sodium 144, Potassium 3.6, Chloride 111 H, Carbon Dioxide 30.0, Anion Gap 3 L, BUN 28 H, Creatinine 1.17, Estim Creat Clear Calc 65.40, Est GFR (MDRD) Af Amer 79, Est GFR (MDRD) Non-Af 66, BUN/Creatinine Ratio 23.9 H , Glucose 143 H, Calcium 7.9 L, Total Bilirubin 0.40, AST 18, ALT 27, Alkaline Phosphatase 65, Troponin I High Sens 8, Total Protein 5.8 L, Albumin 2.8 L, Globulin 3.0, Albumin/Globulin Ratio 0.9 01/02/23 13:55: Lactic Acid 1.4, Valproic Acid 10 L 01/02/23 14:15: Urine Color Yellow, Urine Clarity Sl. Cloudy, Urine pH 5.0, Ur Specific [place] 1.020, Urine Protein 30 H, Urine Glucose (UA) Normal, Urine Ketones Negative, Urine Occult Blood 10 H, Urine Nitrite Negative, Urine Bilirubin 1 H, Urine Urobilinogen 4 H, Ur Leukocyte Esterase 25 H, Urine RBC 0 SEEN, Urine WBC 0 SEEN, Ur Squamous Epith Cells 0 SEEN, Urine Bacteria 0 SEEN, Urine Mucus 0 SEEN 01/02/23 14:58: Ammonia 25.0 01/02/23 16:10: Phosphorus 3.0, Magnesium 2.4, Troponin I High Sens 8 01/02/23 19:25: Procalcitonin 0.10 H 01/02/23 20:16: Troponin I High Sens 8 01/02/23 23:22: MRSA (PCR) Negative 01/03/23 05:30: WBC 2.6 L, RBC 3.45 L, Hgb 11.4 L, Hct 35.2 L, MCV 102.0 H, MCH 33.0 H, MCHC 32.4, RDW Std Deviation 64.2 H, RDW Coeff of Zachary 18.0 H, Plt Count 172, MPV 9.9, Immature Gran % (Auto) 1.900 H, Neut % (Auto) 47.2, Lymph % (Auto) 44.7 H, [place] % (Auto) 5.0, Eos % (Auto) 0.8, Baso % (Auto) 0.4, Absolute Neuts (auto) 1.2 L, Absolute Lymphs (auto) 1.17, Nucleated RBC % 2.3, Polychromasia RARE, Anisocytosis 2+, Macrocytosis 2+, Sodium 145, Potassium 3.9, Chloride 113 H, Carbon Dioxide 26.0, Anion Gap 6, BUN 20 H, Creatinine 0.75, Estim Creat Clear Calc 85.59, Est GFR (MDRD) Af Amer 132, Est GFR (MDRD) Non-Af 109, BU N/Creatinine Ratio 26.6 H, Glucose 78, Hemoglobin A1c 4.8, Calcium 8.2 L, Total Bilirubin 0.80, AST 21, ALT 30, Alkaline Phosphatase 64, Total Protein 6.0 L, Albumin 2.7 L, Globulin 3.3, Albumin/Globulin Ratio 0.8 L Micro: Microbiology 01/02/23 23:16 Urine, Clean Catch Legionella Antigen - Final 01/02/23 23:16 Urine, Clean Catch Streptococcus pneumoniae Antigen (M - Final 01/02/23 19:25 Mucosa - Nose Coronavirus COVID-19 PCR - Final 01/02/23 19:25 Mucosa - Nasopharyngeal Respiratory Panel (PCR) - Final Radiography Diagnostic Testing: Radiology Impression Brain CT 01/02/23 13:23 IMPRESSION: Status post bilateral frontal craniotomy. Findings suggestive of possible neoplastic process in the anterior aspect of the left frontal lobe with surrounding edema. Focal encephalomalacia in the right frontal lobe. No shift of the midline is seen. Electronically Signed: Mayur Gonzalez MD at 14:52 EDT , Chest X-Ray 01/02/23 13:23 IMPRESSION: Hyperinflation. Increased markings at the right lung base suggestive of atelectasis. Electronically Signed: Mayur Gonzalez MD at 14:57 EDT , Echocardiogram 01/02/23 19:51 Interpretation Summary The estimated ejection fraction is 70 %. Ordering Physician: Meri Hahn Referring Physician: [facility] Performed By: Susanne Gibson RCS Chest X-Ray 01/03/23 05:55 IMPRESSION: Right lower lobe infiltrate and/or atelectasis. Consider PA and lateral film of the chest when appropriate. Tortuous aorta. Electronically Signed: Michaela Bueno MD at 4:46 EDT , Physical Exam Const alert Orientation / Consciousness: lethargic HEENT normocephalic and head/scalp atraumatic Mouth: dry mucous membranes Eyes PERRL and EOMs intact bilaterally Neck supple and no JVD Lymph Lymphatic: no lymphadenopathy noted Resp Resp Narrative: mildly diminished breath sounds bibasally, no wheezes or crackles. On room air. Cardio regular rate, regular rhythm, S1 normal heart sound, S2 normal heart sound and no murmurs GI normal to inspection, nondistended, normoactive bowel sounds, soft to palpation, non-tender and non-distended Extremity normal capillary refill, no clubbing, cyanosis or edema and no calf tenderness Skin General Skin Exam: no breakdown Neuro Neuro Narrative: patient lethargic, no visible movements of all extremities bilaterally. Psych Psych Narrative: lethargic, flat affect Assessment & Plan Assessment/Plan (1) Acute alteration in mental status: (2) Syncope: PLAN: Plan #SYncope * thought to e due to hypotension. Concern for aspiration. He is now on room air though. * CXR showed findings suggestive of atelectasis in right lung base * orthostatics were positive * continue hydration with iVF * monitor orthostatics * PT/OT on board * fall precautions * #Hypoxia: resolved. Now on room air. COVID screen and respiratory panel negative. started on IV zosyn due to concern for aspiration pneumonia. #Glioblastoma s/p bilateral frontal craniotomy * CT brain showed possible neoplastic process int eh anterior aspect of the left frontal lobe with surrounding edema, which per his is similar to his baseline * on gleostine * spouse didnt want patient transferred [facility] * on dexamethasone 20mg bid. * on Keppra * #Anxiety and depression; on cymbalta and depakote #BPH: on flomax and finasteride DVT prophylaxis; SCDs * Charges/Coding Visit Charges Inpatient E&M: 44846 Subs Hosp L2
--- NOTE | 2023-01-03 15:45 | CASEMGMT ---
Discharge Planning Met with patient to complete SANDOVAL form. SANDOVAL form explained to patient who voiced understanding and signed form. Original form placed in pt?s chart and copy provided to patient. Terrie Tracey, Discharge Planning Asst.
[2023-01-03] MEDS: Tamsulosin HCl 0.4 MG Capsule 0.8 MG PO (21:36)
[2023-01-03] MEDS: MELATONIN 3 MG TABLET 6 MG PO (21:37)
[2023-01-03] MEDS: Divalproex (ER) 250 MG Tablet PO (21:37)
[2023-01-04] VITALS (7 sets, daily range): BP systolic 129–152; BP diastolic 61–78; PULSE 49–79; RESP 18; TEMP 36.4–36.6; O2SAT 93–100; BMI 23.2
[2023-01-04] MEDS: Piperacil/Tazobactam 3.375 GM in 0.9% Normal Saline (50mL MB+) 50 ML IV ×3 (05:28→20:50)
[2023-01-04] MEDS: levETIRAcetam 500 MG Tablet PO ×2 (08:50→20:50)
[2023-01-04] MEDS: DULoxetine Hcl 20 MG Capsule PO (08:50)
[2023-01-04] MEDS: Thiamine Hydrochloride 100 MG Tablet PO (08:50)
[2023-01-04] MEDS: Finasteride 5 MG Tablet PO (08:50)
[2023-01-04] MEDS: Menthol/Lanolin/Calamine/Znox 113 GM Tube 1 APPLIC TOPICAL ×4 (08:53→20:50)
[2023-01-04] MEDS: Silver Sulfadiazine 1% Crm 50 gm Bottle 1 APPLIC TOPICAL ×2 (08:54→20:50)
[2023-01-04 08:55] LABS: Absolute Lymphocyte Count 1.41 X10^3/uL (0.83-4.51); Absolute Neutrophil Count 1.7 X10^3/uL (2.0-7.7); Basophil# 0.01 X10^3/uL; Basophil% 0.3 % (0-1); Eosinophil# 0.03 X10^3/uL; Eosinophils% 0.9 % (0-5); Hematocrit 33.3 % (40-54); Hemoglobin 10.9 g/dL (13.0-16.5); Lymphocyte # 1.41 X10^3/ul (0.83-4.51); Lymphocyte % 40.5 % (19-41); Mean Corp Hgb Conc 32.7 g/dL (32-36); Mean Corpuscular Hgb 33.3 pg (27.0-32.0); Mean Corpuscular Volume 101.8 fL (80-94); Mean Platelet Vol. 9.7 fl (6.2-12.0); Monocyte% 5.7 % (0-10); Neutrophil % 48.9 % (47-70); Platelet Count 183 K/mm3 (150-450); RBC Distribution Width CV 17.5 % (11.6-14.6); RBC Distribution Width SD 63.4 fl (35.1-43.9); Red Blood Count 3.27 M/mm3 (4.6-6.2); White Blood Count 3.5 K/mm3 (4.4-11.0)
[2023-01-04] MEDS: Gabapentin 600 MG Tablet PO ×2 (08:58→20:51)
[2023-01-04] MEDS: dexAMETHasone 4 MG Tablet 2 MG PO ×2 (09:23→16:17)
[2023-01-04 09:28] LABS: Anion Gap 6 (5-15); BUN 14 mg/dL (7-18); BUN/Creat Ratio 19.5 RATIO (10-20); Calcium,Total 8.8 mg/dL (8.5-10.1); Chloride 111 mmol/L (98-107); Creatinine, Serum 0.72 mg/dL (0.70-1.30); EST Glomerular Filtration Rate 115 mL/min (>60); Est Glom Filt Rate - Afr Amer 140 mL/min (>60); Glucose 83 mg/dL (74-106); Potassium 3.8 mmol/L (3.5-5.1); Sodium Level 141 mmol/L (136-145)
--- NOTE | 2023-01-04 13:27 | PN_ITS ---
Subjective Subjective Patient seen and examined. He was alert and had no complaints. Unable to do comprehensive review of systems as patient is not very communicative. He has remained hemodynamically stable although he was bradycardic this morning with heart rate of 49. He is on room air. Objective Data Objective Data Vital Signs: Vital Signs Temp Pulse Resp BP Pulse Ox O2 Del Method O2 Flow Rate 97.6 F L 49 L 18 152/74 H 98 Room Air 2 01/04/23 08:40 01/04/23 08:40 01/04/23 08:40 01/04/23 08:40 01/04/23 08:40 01/04/23 08:40 01/02/23 18:51 Oxygen Flow Rate (L/min) 2 Oxygen Delivery Method Room Air Weight: 191 lb 2.252 oz Body Mass Index (BMI) 23.2 Intake & Output: Intake and Output for Last 24 Hours 01/02/23 01/03/23 01/04/23 23:59 23:59 23:59 Intake Total 100 / 100 1688.33 / 1688.33 260 / 260 Output Total 650 / 650 1750 / 1750 800 / 800 Balance -550 / -550 -61.67 / -61.67 -540 / -540 Lab / Micro Data 01/04/23 08:30 01/04/23 08:30 Labs: Laboratory Results - last 24 hr 01/04/23 08:30: WBC 3.5 L, RBC 3.27 L, Hgb 10.9 L, Hct 33.3 L, MCV 101.8 H, MCH 33.3 H, MCHC 32.7, RDW Std Deviation 63.4 H, RDW Coeff of Zachary 17.5 H, Plt Count 183, MPV 9.7, Immature Gran % (Auto) 3.700 H, Neut % (Auto) 48.9, Lymph % (Auto) 40.5, [place] % (Auto) 5.7, Eos % (Auto) 0.9, Baso % (Auto) 0.3, Absolute Neuts (auto) 1.7 L, Absolute Lymphs (auto) 1.41, Nucleated RBC % 2.0, Sodium 141, Potassium 3.8, Chloride 111 H, Carbon Dioxide 24.0, Anion Gap 6, BUN 14, Creatinine 0.72, Estim Creat Clear Calc 85.50, Est GFR (MDRD) Af Amer 140, Est GFR (MDRD) Non-Af 115, BUN/Creatinine Ratio 19.5, Glucose 83, Calcium 8.8 Micro: Microbiology 01/02/23 23:16 Urine, Clean Catch Legionella Antigen - Final 01/02/23 23:16 Urine, Clean Catch Streptococcus pneumoniae Antigen (M - Final 01/02/23 19:25 Mucosa - Nose Coronavirus COVID-19 PCR - Final 01/02/23 19:25 Mucosa - Nasopharyngeal Respiratory Panel (PCR) - Final Physical Exam Const alert Orientation / Consciousness: lethargic HEENT normocephalic and head/scalp atraumatic Mouth: dry mucous membranes Eyes PERRL and EOMs intact bilaterally Neck supple and no JVD Lymph Lymphatic: no lymphadenopathy noted Resp Resp Narrative: mildly diminished breath sounds bibasally, no wheezes or crackles. On room air. Cardio regular rate, regular rhythm, S1 normal heart sound, S2 normal heart sound and no murmurs GI normal to inspection, nondistended, normoactive bowel sounds, soft to palpation, non-tender and non-distended Extremity normal capillary refill, no clubbing, cyanosis or edema and no calf tenderness Skin General Skin Exam: no breakdown Neuro Neuro Narrative: patient lethargic, no visible movements of all extremities bilaterally. Psych Psych Narrative: lethargic, flat affect Assessment & Plan Assessment/Plan (1) Acute alteration in mental status: (2) Syncope: PLAN: Plan #SYncope * thought to be due to hypotension. Concern for aspiration. He is now on room air though. * CXR showed findings suggestive of atelectasis in right lung base * orthostatics were positive * continue hydration with iVF * monitor orthostatics * PT/OT on board * fall precautions * 2D echo: EF of 70% * #Hypoxia: resolved. Now on room air. COVID screen and respiratory panel negative. started on IV zosyn due to concern for aspiration pneumonia. DC antibiotics due to no evidence of aspiration #Bradycardia; HR is 49. This is a one off event, as HR has been normal. Will monitor for now. #Glioblastoma s/p bilateral frontal craniotomy * CT brain showed possible neoplastic process int eh anterior aspect of the left frontal lobe with surrounding edema, which per his is similar to his baseline * on gleostine * spouse didnt want patient transferred to [facility] oncology * on dexamethasone 20mg bid. * on Keppra * #Anxiety and depression; on cymbalta and depakote #BPH: on flomax and finasteride DVT prophylaxis; SCDs * * Disposition: wants patient to be placed in SNF. Case management on board. Charges/Coding Visit Charges Inpatient E&M: 43829 Subs Hosp L2
--- NOTE | 2023-01-04 13:30 | CASEMGMT ---
RN?CM?PROJECT GEOLOGIST?CM?to room to meet with patient for initial transition planning/care coordination?assessment.? Pt resting in bed in no distress at this time, sleeping. Call placed to pt's . Care providers, pharmacy, and demographics verified/updated at this time. PCP: Dr Mares @ [facility] Specialists: Neuro/onc @ [facility]--Dr Carvalho. Urologist @ [place] Pall[facility]: states pt is signed on for [facility] and they are scheduled for first visit next Preferred Pharmacy: [facility] for short-term fill, otherwise, [facility]:?Yes Living Will/HPOA:?Has both LW and HCPOA, who is his , Jenny LNOK: , Jenny Living Arrangements: Lives w/his . [facility] w/2 steps to enter. They are in the process of getting a ramp entrance but is not sure when this will occur. SENIOR INVESTIGATOR's: pt is approved for aides through the [place] for 42 hrs/week (they come 6 days/week) Transportation:?, friends DME: Has the following DME:?RTS, walker, CPAP through the [facility], door alarms. Pt supposed to be getting a W/C and swivel seat for the tub next Sunday. states may possibly need a hospital bed. SNF: states would like p to go to a SNF for therapy and states this would also allow for her to get things situated for pt to return home. She would like lists of both VA approved SNF's and also list of in-network SNF's with [facility]. Terrie estate planner and Zeynep SANDOVAL, made aware. PLAN:??SNF [place] [facility]?RN?CM
--- NOTE | 2023-01-04 13:34 | CASEMGMT ---
Discharge Planning A list of SNF providers including quality and resource use data and consistent with the patient?s preferred geographic region, medical needs, and insurance network was created in [facility] Guide. This list was provided to the SW. Terrie Tracey Discharge Planning Asst.
--- NOTE | 2023-01-04 14:46 | CASEMGMT ---
Per RN TURNER patient's would like patient to go to a senior living facility for rehab. Per RN TURNER patient's would also like a list of VA SNF's patient can go to. LORI called LORI Hickey at [facility] in [place] to see if patient is service connected in order to have [facility] pay for SNF stay. Ruperto said that patient is not service connected. LORI did mention to Ruperto that patient's may be considering hospice soon. [facility] would pay for room and board at a [facility] associated facility if patient were to go on hospice. LORI will notify patient's of this information. Zeynep Flores FACTORY HELPER VIGNESH
--- NOTE | 2023-01-04 15:51 | CASEMGMT ---
LORI spoke with patient's , Jenny. LORI explained to Jenny that patient does not qualify to have [facility] pay for a detention stay. LORI provided Jenny with a list of?long term facility providers including quality and resource use data and consistent with patient?s preferred geographic region, medical needs, and insurance network were provided from the [facility]. LORI explained that she just needs to pick 3 she would be okay with and social work will check with the facilities on availability. Jenny told LORI her 3 choices are: [facility], [facility], and [facility]. LORI did tell Jenny that [facility] currently has several patient's with COVID and staff members out with COVID. Jenny verbalized understanding. LORI will work on referrals. Zeynep MEDELLIN
--- NOTE | 2023-01-04 16:42 | CASEMGMT ---
Discharge Planning Referrals sent to [facility] and [facility] via [facility]. Terrie Tracey, Discharge Planning Asst.
[2023-01-04] MEDS: Divalproex (ER) 250 MG Tablet PO (20:51)
[2023-01-04] MEDS: Tamsulosin HCl 0.4 MG Capsule 0.8 MG PO (20:51)
[2023-01-04] MEDS: MELATONIN 3 MG TABLET 6 MG PO (20:51)
[2023-01-05 03:11] VITALS: BP 142/76; PULSE 60; RESP 16; TEMP 36.4; O2SAT 100
[2023-01-05 03:16] VITALS: O2SAT 100
[2023-01-05 04:23] VITALS: BMI 23.8
[2023-01-05] MEDS: Piperacil/Tazobactam 3.375 GM in 0.9% Normal Saline (50mL MB+) 50 ML IV ×3 (06:08→21:57)
[2023-01-05 06:16] LABS: Absolute Lymphocyte Count 1.88 X10^3/uL (0.83-4.51); Absolute Neutrophil Count 1.9 X10^3/uL (2.0-7.7); Basophil# 0.02 X10^3/uL; Basophil% 0.5 % (0-1); Eosinophil# 0.02 X10^3/uL; Eosinophils% 0.5 % (0-5); Hematocrit 30.9 % (40-54); Hemoglobin 10.2 g/dL (13.0-16.5); Lymphocyte # 1.88 X10^3/ul (0.83-4.51); Mean Corpuscular Hgb 33.2 pg (27.0-32.0); Mean Corpuscular Volume 100.7 fL (80-94); Mean Platelet Vol. 9.6 fl (6.2-12.0); Monocyte# 0.24 X10^3/uL; Monocyte% 5.6 % (0-10); NRBC Flagged by Analyzer 2.1 % (0-5); Neutrophil % 44.5 % (47-70); Platelet Count 215 K/mm3 (150-450); RBC Distribution Width CV 17.7 % (11.6-14.6); RBC Distribution Width SD 63.2 fl (35.1-43.9); Red Blood Count 3.07 M/mm3 (4.6-6.2); White Blood Count 4.3 K/mm3 (4.4-11.0)
[2023-01-05 06:48] LABS: Anion Gap 3 (5-15); BUN 17 mg/dL (7-18); BUN/Creat Ratio 24.5 RATIO (10-20); Calcium,Total 8.6 mg/dL (8.5-10.1); Chloride 110 mmol/L (98-107); EST Glomerular Filtration Rate 120 mL/min (>60); Est Glom Filt Rate - Afr Amer 145 mL/min (>60); Estimated Creatinine Clearance 85.59 ml/min; Glucose 105 mg/dL (74-106); Potassium 3.9 mmol/L (3.5-5.1); Sodium Level 140 mmol/L (136-145)
[2023-01-05 07:34] VITALS: O2SAT 97
[2023-01-05 09:49] VITALS: BP 152/73; PULSE 44; RESP 18; TEMP 36.4; O2SAT 98
[2023-01-05] MEDS: dexAMETHasone 4 MG Tablet 2 MG PO ×2 (09:53→15:53)
[2023-01-05] MEDS: levETIRAcetam 500 MG Tablet PO ×2 (09:53→21:20)
[2023-01-05] MEDS: Thiamine Hydrochloride 100 MG Tablet PO (09:53)
[2023-01-05] MEDS: Finasteride 5 MG Tablet PO (09:54)
[2023-01-05] MEDS: Silver Sulfadiazine 1% Crm 50 gm Bottle 1 APPLIC TOPICAL ×2 (09:54→21:21)
[2023-01-05] MEDS: Menthol/Lanolin/Calamine/Znox 113 GM Tube 1 APPLIC TOPICAL ×4 (09:54→21:18)
[2023-01-05] MEDS: Gabapentin 600 MG Tablet PO ×2 (09:54→21:21)
[2023-01-05] MEDS: DULoxetine Hcl 20 MG Capsule PO (09:54)
--- NOTE | 2023-01-05 12:21 | CASEMGMT ---
[facility] is unable to accept patient nor is [facility]. [facility] asked if patient was still going to pursue treatment for his cancer. SW called patient's Jenny and she was contacting patient's Oncology doctor to see if he was going to continue treatment. SW updated Jenny that [facility] and [facility] are not able to take patient, but [facility] is [facility]. Jenny said she is willing to talk with [facility] if they have questions. SW let [facility] know above information. SW also let [facility] know that Jenny is more than willing to talk with them if they have questions about his treatment. Zeynep Flores LINER REPLACER VIGNESH
--- NOTE | 2023-01-05 13:09 | PN_ITS ---
Subjective Subjective Patient seen and examined. He was resting calmly. Unable to do review of systems as patient is drowsy. He had an episode of bradycardia, with HR down to 44 this morning, but HR is mainly in the 60s and 70s. Objective Data Objective Data Vital Signs: Vital Signs Temp Pulse Resp BP Pulse Ox O2 Del Method O2 Flow Rate 97.5 F L 44 L 18 152/73 H 98 Room Air 2 01/05/23 09:49 01/05/23 09:49 01/05/23 09:49 01/05/23 09:49 01/05/23 09:49 01/05/23 09:49 01/02/23 18:51 Oxygen Flow Rate (L/min) 2 Oxygen Delivery Method Room Air Weight: 195 lb 8.8 oz Body Mass Index (BMI) 23.8 Intake & Output: Intake and Output for Last 24 Hours 01/03/23 01/04/23 01/05/23 23:59 23:59 23:59 Intake Total 1688.33 / 1688.33 638.96 / 638.96 450 / 450 Output Total 1750 / 1750 1350 / 1350 750 / 750 Balance -61.67 / -61.67 -711.04 / -711.04 -300 / -300 Lab / Micro Data 01/05/23 05:29 01/05/23 05:29 Labs: Laboratory Results - last 24 hr 01/05/23 05:29: WBC 4.3 L, RBC 3.07 L, Hgb 10.2 L, Hct 30.9 L, MCV 100.7 H, MCH 33.2 H, MCHC 33.0, RDW Std Deviation 63.2 H, RDW Coeff of Zachary 17.7 H, Plt Count 215, MPV 9.6, Immature Gran % (Auto) 4.900 H, Neut % (Auto) 44.5 L, Lymph % (Auto) 44.0 H, [place] % (Auto) 5.6, Eos % (Auto) 0.5, Baso % (Auto) 0.5, Absolute Neuts (auto) 1.9 L, Absolute Lymphs (auto) 1.88, Nucleated RBC % 2.1, Sodium 140, Potassium 3.9, Chloride 110 H, Carbon Dioxide 27.0, Anion Gap 3 L, BUN 17, Creatinine 0.70, Estim Creat Clear Calc 85.59, Est GFR (MDRD) Af Amer 145, Est GFR (MDRD) Non-Af 120, BUN/Creatinine Ratio 24.5 H, Glucose 105, Calcium 8.6 Micro: Microbiology 01/02/23 23:16 Urine, Clean Catch Legionella Antigen - Final 01/02/23 23:16 Urine, Clean Catch Streptococcus pneumoniae Antigen (M - Final 01/02/23 19:25 Mucosa - Nose Coronavirus COVID-19 PCR - Final 01/02/23 19:25 Mucosa - Nasopharyngeal Respiratory Panel (PCR) - Final Physical Exam Const alert Orientation / Consciousness: lethargic HEENT normocephalic and head/scalp atraumatic Eyes PERRL and EOMs intact bilaterally Neck supple and no JVD Lymph Lymphatic: no lymphadenopathy noted Resp Resp Narrative: mildly diminished breath sounds bibasally, no wheezes or crackles. On room air. Cardio regular rate, regular rhythm, S1 normal heart sound, S2 normal heart sound and no murmurs GI normal to inspection, nondistended, normoactive bowel sounds, soft to palpation, non-tender and non-distended Extremity normal capillary refill, no clubbing, cyanosis or edema and no calf tenderness Skin General Skin Exam: no breakdown Neuro Neuro Narrative: patient lethargic, no visible movements of all extremities bilaterally. Psych Psych Narrative: lethargic, flat affect Assessment & Plan Assessment/Plan (1) Acute alteration in mental status: (2) Syncope: PLAN: Plan #SYncope * thought to be due to hypotension. Concern for aspiration. He is now on room air though. * CXR showed findings suggestive of atelectasis in right lung base * orthostatics were positive * continue hydration with iVF * monitor orthostatics * PT/OT on board * fall precautions * 2D echo: EF of 70% * #Hypoxia: resolved. Now on room air. COVID screen and respiratory panel negative. started on IV zosyn due to concern for aspiration pneumonia. DC antibiotics due to no evidence of aspiration #Bradycardia; this is very sporadic and episodic. HR #Glioblastoma s/p bilateral frontal craniotomy * CT brain showed possible neoplastic process int eh anterior aspect of the left frontal lobe with surrounding edema, which per his is similar to his baseline * on gleostine * spouse didnt want patient transferred to [facility] oncology * on dexamethasone 20mg bid. * on Keppra * #Anxiety and depression; on cymbalta and depakote #BPH: on flomax and finasteride DVT prophylaxis; SCDs * Disposition: wants patient to be placed in SNF. Case management on board. Charges/Coding Visit Charges Inpatient E&M: 88232 Subs Hosp L2
[2023-01-05 15:33] VITALS: BP 146/76; PULSE 70; RESP 18; TEMP 36.5; O2SAT 96
--- NOTE | 2023-01-05 16:09 | CASEMGMT ---
[facility] accepted patient and they will start the pre-cert. notified patient's and she was in agreement. did let her know it is unlikely we would hear back from insurance before Sunday. Plan: d/c to [facility] pending pre-cert. Zeynep MEDELLIN
--- NOTE | 2023-01-05 18:42 | CASEMGMT ---
Social Work SW introduced self and role to patient. SW inquired about advance directives. Pt shook his head no to having HCPOA/Living will documents. SW left information regarding advance directives for patient and to review and patient shook his head in understanding. Arianne Frank [employer] LIAISON OFFICER, COMPLIANCE LEAD
[2023-01-05 21:07] VITALS: BP 166/80; PULSE 57; RESP 12; TEMP 36.6; O2SAT 98
[2023-01-05] MEDS: Divalproex (ER) 250 MG Tablet PO (21:19)
[2023-01-05] MEDS: MELATONIN 3 MG TABLET 6 MG PO (21:20)
[2023-01-05] MEDS: Tamsulosin HCl 0.4 MG Capsule 0.8 MG PO (21:20)
[2023-01-06 03:13] VITALS: BP 101/77; PULSE 66; RESP 12; TEMP 36.3; O2SAT 97
[2023-01-06 04:13] VITALS: BMI 23.5
[2023-01-06] MEDS: Piperacil/Tazobactam 3.375 GM in 0.9% Normal Saline (50mL MB+) 50 ML IV (05:22)
[2023-01-06 08:43] LABS: Basophil# 0.08 X10^3/uL; Eosinophil# 0.04 X10^3/uL; Hematocrit 32.7 % (40-54); Hemoglobin 10.2 g/dL (13.0-16.5); Mean Corp Hgb Conc 31.2 g/dL (32-36); Mean Corpuscular Hgb 32.9 pg (27.0-32.0); Mean Corpuscular Volume 105.5 fL (80-94); Mean Platelet Vol. 9.8 fl (6.2-12.0); Monocyte# 0.32 X10^3/uL; NRBC Flagged by Analyzer 2.3 % (0-5); POSITIVE COUNT YES; POSITIVE MORPHOLOGY YES; Platelet Count 234 K/mm3 (150-450); RBC Distribution Width CV 17.8 % (11.6-14.6); RBC Distribution Width SD 67.4 fl (35.1-43.9); White Blood Count 4.7 K/mm3 (4.4-11.0)
[2023-01-06 08:55] LABS: Differential Indicated SCAN CRITERIA MET
[2023-01-06 09:04] LABS: Anion Gap 5 (5-15); BUN 16 mg/dL (7-18); BUN/Creat Ratio 22.1 RATIO (10-20); Calcium,Total 8.7 mg/dL (8.5-10.1); Chloride 111 mmol/L (98-107); Creatinine, Serum 0.72 mg/dL (0.70-1.30); EST Glomerular Filtration Rate 114 mL/min (>60); Est Glom Filt Rate - Afr Amer 138 mL/min (>60); Estimated Creatinine Clearance 85.59 ml/min; Glucose 74 mg/dL (74-106); Potassium 3.8 mmol/L (3.5-5.1); Sodium Level 142 mmol/L (136-145)
[2023-01-06 09:13] VITALS: BP 145/82; PULSE 68; RESP 18; TEMP 36.4; O2SAT 98
[2023-01-06 09:24] LABS: Lymphocyte 56 % (19-41); Metamyelocyte 1 % (0-1); Monocyte 2 % (0-10); Myelocyte 3 % (0-0); Neutrophil-Band 1 % (0-5); Neutrophil-Segmented 37 % (47-70); Nucleated Red Bld Cells,Manual 1 % (0-5); Total Cells Counted 100 (MANUAL DIFF)
[2023-01-06] MEDS: Silver Sulfadiazine 1% Crm 50 gm Bottle 1 APPLIC TOPICAL ×2 (09:25→22:47)
[2023-01-06 09:26] LABS: Scan Smear per Review Criteria MANUAL DIFF
[2023-01-06] MEDS: levETIRAcetam 500 MG Tablet PO ×2 (09:27→22:57)
[2023-01-06] MEDS: DULoxetine Hcl 20 MG Capsule PO (09:27)
[2023-01-06] MEDS: dexAMETHasone 4 MG Tablet 2 MG PO ×2 (09:27→17:40)
[2023-01-06 09:28] LABS: Neutrophil # 1.98 X10^3/uL (2.7-7.7)
[2023-01-06] MEDS: Thiamine Hydrochloride 100 MG Tablet PO (09:28)
[2023-01-06] MEDS: Gabapentin 600 MG Tablet PO ×2 (09:28→22:51)
--- NOTE | 2023-01-06 09:28 | CASEMGMT ---
Social Work LW/POA not in pt's electronic chart. SW let pt know and asked him to ask his to bring in the documents as able. Pt nodded in understanding. ETTA Paez
[2023-01-06 09:29] LABS: Absolute Lymphocyte Count 4.32 X10^3/uL (0.83-4.51); Lymphocyte # 4.32 X10^3/ul (0.83-4.51); Platelet Estimate ADEQUATE (ADEQ)
[2023-01-06] MEDS: Finasteride 5 MG Tablet PO (09:29)
[2023-01-06] MEDS: Menthol/Lanolin/Calamine/Znox 113 GM Tube 1 APPLIC TOPICAL ×4 (09:29→22:46)
[2023-01-06 09:30] LABS: Macrocytosis 1+; Polychromasia RARE
--- NOTE | 2023-01-06 13:34 | PCM.PROGNOTE ---
Subjective Subjective Patient seen and examined. He has remained stable. He is alert but not very communicative. He remains on room air. Objective Data Objective Data Vital Signs: Vital Signs Temp Pulse Resp BP Pulse Ox O2 Del Method O2 Flow Rate 97.6 F L 68 18 145/82 H 98 Room Air 2 01/06/23 09:13 01/06/23 09:13 01/06/23 09:13 01/06/23 09:13 01/06/23 09:13 01/06/23 09:37 01/02/23 18:51 Oxygen Flow Rate (L/min) 2 Oxygen Delivery Method Room Air Weight: 193 lb 1.999 oz Body Mass Index (BMI) 23.5 Intake & Output: Intake and Output for Last 24 Hours 01/04/23 01/05/23 01/06/23 23:59 23:59 23:59 Intake Total 638.96 / 638.96 500 / 500 100 / 100 Output Total 1350 / 1350 750 / 1425 1475 / 1475 Balance -711.04 / -711.04 -250 / -925 -1375 / -1375 Lab / Micro Data 01/06/23 07:36 01/06/23 07:36 Labs: Laboratory Results - last 24 hr 01/06/23 07:36: WBC 4.7, RBC 3.10 L, Hgb 10.2 L, Hct 32.7 L, MCV 105.5 H, MCH 32.9 H, MCHC 31.2 L D, RDW Std Deviation 67.4 H, RDW Coeff of Zachary 17.8 H, Plt Count 234, MPV 9.8, Immature Gran % (Auto) COIN MACHINE OPERATOR, Neut % (Auto) COIN MACHINE OPERATOR, Lymph % (Auto) COIN MACHINE OPERATOR, Boyle % (Auto) COIN MACHINE OPERATOR, Eos % (Auto) COIN MACHINE OPERATOR, Baso % (Auto) COIN MACHINE OPERATOR, Absolute Neuts (auto) 2.0, Absolute Lymphs (auto) 4.32, Total Counted 100, Neutrophils % (Manual) 37 L, Band Neutrophils % 1, Lymphocytes % (Manual) 56 H, Monocytes % (Manual) 2, Metamyelocytes % 1, Myelocytes % 3 H, Nucleated RBC % 2.3, Nucleated RBCs/100 WBC 1, Diff Path Review August, Platelet Estimate ADEQUATE, Polychromasia RARE, Macrocytosis 1+, Sodium 142, Potassium 3.8, Chloride 111 H, Carbon Dioxide 26.0, Anion Gap 5, BUN 16, Creatinine 0.72, Estim Creat Clear Calc 85.59, Est GFR (MDRD) Af Amer 138, Est GFR (MDRD) Non-Af 114, BUN/Creatinine Ratio 22.1 H, Glucose 74, Calcium 8.7 Micro: Microbiology 01/02/23 23:16 Urine, Clean Catch Legionella Antigen - Final 01/02/23 23:16 Urine, Clean Catch Streptococcus pneumoniae Antigen (M - Final 01/02/23 19:25 Mucosa - Nose Coronavirus COVID-19 PCR - Final 01/02/23 19:25 Mucosa - Nasopharyngeal Respiratory Panel (PCR) - Final Physical Exam Const alert Constitutional Narrative: non communicative HEENT normocephalic and head/scalp atraumatic Mouth: dry mucous membranes Eyes PERRL and EOMs intact bilaterally Neck supple and no JVD Lymph Lymphatic: no lymphadenopathy noted Resp Resp Narrative: mildly diminished breath sounds bibasally, no wheezes or crackles. On room air. Cardio regular rate, regular rhythm, S1 normal heart sound, S2 normal heart sound and no murmurs GI normal to inspection, nondistended, normoactive bowel sounds, soft to palpation, non-tender and non-distended Extremity normal capillary refill, no clubbing, cyanosis or edema and no calf tenderness Skin General Skin Exam: no breakdown Neuro Neuro Narrative: patient lethargic, no visible movements of all extremities bilaterally. Psych Psych Narrative: lethargic, flat affect Assessment & Plan Assessment/Plan (1) Acute alteration in mental status: (2) Syncope: PLAN: Plan #SYncope thought to be due to hypotension. Concern for aspiration. He is now on room air though. CXR showed findings suggestive of atelectasis in right lung base orthostatics were positive hydrated with IVF monitor orthostatics PT/OT on board fall precautions 2D echo: EF of 70% #Hypoxia: resolved. Now on room air. COVID screen and respiratory panel negative. started on IV zosyn due to concern for aspiration pneumonia. DC antibiotics due to no evidence of aspiration #Bradycardia; this is very sporadic and episodic. HR #Glioblastoma s/p bilateral frontal craniotomy CT brain showed possible neoplastic process int eh anterior aspect of the left frontal lobe with surrounding edema, which per his is similar to his baseline on gleostine spouse didnt want patient transferred to [facility] on dexamethasone 20mg bid. on Keppra #Anxiety and depression; on cymbalta and depakote #BPH: on flomax and finasteride DVT prophylaxis; SCDs Disposition: wants patient to be placed in SNF. Case management on board. Awaiting placement Charges/Coding Visit Charges Inpatient E&M: 13933 Subs Hosp L2
[2023-01-06] MEDS: 0.9% Saline Lock 10 ML Syringe IV (15:32)
[2023-01-06 16:26] VITALS: BP 140/79; PULSE 64; RESP 17; TEMP 36.6; O2SAT 96
[2023-01-06 22:36] VITALS: BP 155/73; PULSE 67; RESP 15; TEMP 36.7; O2SAT 95
[2023-01-06] MEDS: MELATONIN 3 MG TABLET 6 MG PO (22:50)
[2023-01-06] MEDS: Tamsulosin HCl 0.4 MG Capsule 0.8 MG PO (22:57)
[2023-01-06] MEDS: Divalproex (ER) 250 MG Tablet PO (22:57)
[2023-01-07 03:55] VITALS: BP 153/84; PULSE 80; RESP 15; TEMP 36.9; O2SAT 94
[2023-01-07 04:47] VITALS: BMI 24.0
[2023-01-07 05:00] LABS: Hematocrit 31.5 % (40-54); Hemoglobin 10.6 g/dL (13.0-16.5); Mean Corp Hgb Conc 33.7 g/dL (32-36); Mean Corpuscular Hgb 33.5 pg (27.0-32.0); Mean Corpuscular Volume 99.7 fL (80-94); Mean Platelet Vol. 9.3 fl (6.2-12.0); POSITIVE COUNT YES; POSITIVE MORPHOLOGY YES; Platelet Count 235 K/mm3 (150-450); RBC Distribution Width CV 17.6 % (11.6-14.6); RBC Distribution Width SD 62.3 fl (35.1-43.9); Red Blood Count 3.16 M/mm3 (4.6-6.2); White Blood Count 5.2 K/mm3 (4.4-11.0)
[2023-01-07 05:02] LABS: Differential Indicated MANUAL DIFF
[2023-01-07 06:06] LABS: Anion Gap 5 (5-15); BUN 18 mg/dL (7-18); BUN/Creat Ratio 26.7 RATIO (10-20); Calcium,Total 8.3 mg/dL (8.5-10.1); Chloride 108 mmol/L (98-107); Creatinine, Serum 0.67 mg/dL (0.70-1.30); EST Glomerular Filtration Rate 124 mL/min (>60); Est Glom Filt Rate - Afr Amer 150 mL/min (>60); Estimated Creatinine Clearance 85.59 ml/min; Glucose 84 mg/dL (74-106); Potassium 4.1 mmol/L (3.5-5.1); Sodium Level 137 mmol/L (136-145)
[2023-01-07 06:58] LABS: Basophil 1 % (0-1); Eosinophil 1 % (0-5); Lymphocyte 31 % (19-41); Metamyelocyte 2 % (0-1); Monocyte 6 % (0-10); Myelocyte 5 % (0-0); Neutrophil-Band 4 % (0-5); Neutrophil-Segmented 50 % (47-70); Total Cells Counted 100 (MANUAL DIFF)
[2023-01-07 06:59] LABS: Absolute Lymphocyte Count 1.62 X10^3/uL (0.83-4.51); Absolute Neutrophil Count 2.8 X10^3/uL (2.0-7.7); Lymphocyte # 1.62 X10^3/ul (0.83-4.51); Neutrophil # 2.83 X10^3/uL (2.7-7.7); Nucleated Red Bld Cells,Manual 3 % (0-5); Platelet Estimate ADEQUATE (ADEQ); Red Cell Morphology NORM C+C NORMAL (NORM C&C)
[2023-01-07 10:00] VITALS: BP 139/87; PULSE 107; RESP 17; TEMP 36.4; O2SAT 97
[2023-01-07] MEDS: Gabapentin 600 MG Tablet PO ×2 (10:17→21:27)
[2023-01-07] MEDS: levETIRAcetam 500 MG Tablet PO ×2 (10:18→21:27)
[2023-01-07] MEDS: Finasteride 5 MG Tablet PO (10:18)
[2023-01-07] MEDS: Thiamine Hydrochloride 100 MG Tablet PO (10:18)
[2023-01-07] MEDS: dexAMETHasone 4 MG Tablet 2 MG PO ×2 (10:19→17:10)
[2023-01-07] MEDS: DULoxetine Hcl 20 MG Capsule PO (10:19)
--- NOTE | 2023-01-07 12:12 | PN_ITS ---
Subjective Subjective Patient seen and examined. He had minimal complaints. He had a flat affect. No active events overnight. He is awaiting placement. Objective Data Objective Data Vital Signs: Vital Signs Temp Pulse Resp BP Pulse Ox O2 Del Method O2 Flow Rate 97.6 F L 107 H 17 139/87 H 97 Room Air 2 01/07/23 10:00 01/07/23 10:00 01/07/23 10:00 01/07/23 10:00 01/07/23 10:00 01/07/23 10:00 01/02/23 18:51 Oxygen Flow Rate (L/min) 2 Oxygen Delivery Method Room Air Weight: 197 lb 1.492 oz Body Mass Index (BMI) 24.0 Intake & Output: Intake and Output for Last 24 Hours 01/05/23 01/06/23 01/07/23 23:59 23:59 23:59 Intake Total 500 / 500 340 / 480 140 / 140 Output Total 750 / 1425 1775 / 2125 475 / 475 Balance -250 / -925 -1435 / -1645 -335 / -335 Lab / Micro Data 01/07/23 04:40 01/07/23 04:40 Labs: Laboratory Results - last 24 hr 01/07/23 04:40: WBC 5.2, RBC 3.16 L, Hgb 10.6 L, Hct 31.5 L, MCV 99.7 H D, MCH 33.5 H, MCHC 33.7 D, RDW Std Deviation 62.3 H, RDW Coeff of Zachary 17.6 H, Plt Count 235, MPV 9.3, Neut % (Auto) Not Reportable, Absolute Neuts (auto) 2.8, Absolute Lymphs (auto) 1.62, Total Counted 100, Neutrophils % (Manual) 50, Band Neutrophils % 4, Lymphocytes % (Manual) 31, Monocytes % (Manual) 6, Eosinophils % (Manual) 1, Basophils % (Manual) 1, Metamyelocytes % 2 H, Myelocytes % 5 H, Nucleated RBCs/100 WBC 3, Diff Path Review August, Platelet Estimate ADEQUATE, RBC Morphology NORM C+C, Sodium 137, Potassium 4.1, Chloride 108 H, Carbon Dioxide 24.0, Anion Gap 5, BUN 18, Creatinine 0.67 L, Estim Creat Clear Calc 85.59, Est GFR (MDRD) Af Amer 150, Est GFR (MDRD) Non-Af 124, BUN/Creatinine Ratio 26.7 H, Glucose 84, Calcium 8.3 L Micro: Microbiology 01/02/23 23:16 Urine, Clean Catch Legionella Antigen - Final 01/02/23 23:16 Urine, Clean Catch Streptococcus pneumoniae Antigen (M - Final 01/02/23 19:25 Mucosa - Nose Coronavirus COVID-19 PCR - Final 01/02/23 19:25 Mucosa - Nasopharyngeal Respiratory Panel (PCR) - Final Physical Exam Const alert Constitutional Narrative: non communicative Orientation / Consciousness: lethargic HEENT normocephalic and head/scalp atraumatic Eyes PERRL and EOMs intact bilaterally Neck supple and no JVD Lymph Lymphatic: no lymphadenopathy noted Resp Resp Narrative: mildly diminished breath sounds bibasally, no wheezes or crackles. On room air. Cardio regular rate, regular rhythm, S1 normal heart sound, S2 normal heart sound and no murmurs GI normal to inspection, nondistended, normoactive bowel sounds, soft to palpation, non-tender and non-distended Extremity normal capillary refill, no clubbing, cyanosis or edema and no calf tenderness Skin General Skin Exam: no breakdown Neuro CN's II-XII intact bilaterally and no focal motor deficits Neuro Narrative: flat affect Psych Psych Narrative: flat affect Assessment & Plan Assessment/Plan (1) Acute alteration in mental status: (2) Syncope: PLAN: Plan #SYncope * thought to be due to hypotension. Concern for aspiration. He is now on room air though. * CXR showed findings suggestive of atelectasis in right lung base * PT/OT on board * fall precautions * 2D echo: EF of 70% * stable * #Hypoxia: * resolved. Now on room air. COVID screen and respiratory panel negative. started on IV zosyn due to concern for aspiration pneumonia. * DC antibiotics due to no evidence of aspiration #Bradycardia; this is very sporadic and episodic. stable. Will monitor #Glioblastoma s/p bilateral frontal craniotomy * CT brain showed possible neoplastic process int eh anterior aspect of the left frontal lobe with surrounding edema, which per his is similar to his baseline * on gleostine * spouse didnt want patient transferred to [facility] oncology * on dexamethasone 20mg bid. * on Keppra * #Anxiety and depression; on cymbalta and depakote #BPH: on flomax and finasteride DVT prophylaxis; SCDs * Disposition: wants patient to be placed in SNF. Case management on board. Awaiting placement. Precert pending for [facility] Charges/Coding Visit Charges Inpatient E&M: 56925 Subs Hosp L2
[2023-01-07 16:00] VITALS: BP 136/83; PULSE 102; RESP 17; TEMP 36.6; O2SAT 97
[2023-01-07] MEDS: Menthol/Lanolin/Calamine/Znox 113 GM Tube 1 APPLIC TOPICAL ×2 (17:10→21:28)
[2023-01-07 21:25] VITALS: BP 162/87; PULSE 91; RESP 18; TEMP 37; O2SAT 96
[2023-01-07] MEDS: Tamsulosin HCl 0.4 MG Capsule 0.8 MG PO (21:27)
[2023-01-07] MEDS: Divalproex (ER) 250 MG Tablet PO (21:27)
[2023-01-07] MEDS: MELATONIN 3 MG TABLET 6 MG PO (21:27)
[2023-01-07] MEDS: Silver Sulfadiazine 1% Crm 50 gm Bottle 1 APPLIC TOPICAL (21:28)
[2023-01-08 03:25] VITALS: BP 109/68; PULSE 82; RESP 18; TEMP 36.8; O2SAT 93
[2023-01-08 06:00] VITALS: BMI 23.5
[2023-01-08 06:55] LABS: Hematocrit 31.3 % (40-54); Hemoglobin 10.1 g/dL (13.0-16.5); Mean Corp Hgb Conc 32.3 g/dL (32-36); Mean Corpuscular Hgb 32.9 pg (27.0-32.0); Mean Platelet Vol. 9.7 fl (6.2-12.0); POSITIVE COUNT YES; POSITIVE MORPHOLOGY YES; Platelet Count 254 K/mm3 (150-450); RBC Distribution Width CV 17.9 % (11.6-14.6); RBC Distribution Width SD 64.9 fl (35.1-43.9); Red Blood Count 3.07 M/mm3 (4.6-6.2)
[2023-01-08 06:58] LABS: Differential Indicated MANUAL DIFF
[2023-01-08 07:18] LABS: Anion Gap 5 (5-15); BUN 22 mg/dL (7-18); BUN/Creat Ratio 32.8 RATIO (10-20); Calcium,Total 8.3 mg/dL (8.5-10.1); Chloride 108 mmol/L (98-107); Creatinine, Serum 0.67 mg/dL (0.70-1.30); EST Glomerular Filtration Rate 125 mL/min (>60); Est Glom Filt Rate - Afr Amer 151 mL/min (>60); Estimated Creatinine Clearance 85.59 ml/min; Glucose 89 mg/dL (74-106); Potassium 3.9 mmol/L (3.5-5.1); Sodium Level 138 mmol/L (136-145)
[2023-01-08 07:34] LABS: White Blood Count 6.2 K/mm3 (4.4-11.0)
[2023-01-08 07:38] LABS: Lymphocyte 52 % (19-41); Metamyelocyte 2 % (0-1); Monocyte 5 % (0-10); Myelocyte 1 % (0-0); Neutrophil-Band 1 % (0-5); Neutrophil-Segmented 38 % (47-70); Nucleated Red Bld Cells,Manual 4 % (0-5); Promyelocyte 1 % (0-0); Total Cells Counted 100 (MANUAL DIFF)
[2023-01-08 07:40] LABS: Platelet Estimate ADEQUATE (ADEQ); Red Cell Morphology NORM C+C NORMAL (NORM C&C)
[2023-01-08 07:42] LABS: Absolute Neutrophil Count 2.4 X10^3/uL (2.0-7.7)
--- NOTE | 2023-01-08 09:02 | PCM.PN.HOSP ---
Reason for Visit Reason for Visit: Diagnoses Altered mental status, unspecified (01/03/23) Syncope and collapse (01/03/23) Subjective Subjective Minimally verbal with staff. Objective Data Objective Data Vital Signs: Vital Signs Temp Pulse Resp BP Pulse Ox O2 Del Method O2 Flow Rate 36.8 C 82 18 109/68 93 Room Air 2 01/08/23 03:25 01/08/23 03:25 01/08/23 03:25 01/08/23 03:25 01/08/23 03:25 01/08/23 07:50 01/02/23 18:51 Oxygen Flow Rate (L/min) 2 Oxygen Delivery Method Room Air Weight: 87.7 kg Body Mass Index (BMI) 23.5 Intake & Output: Intake and Output for Last 24 Hours 01/06/23 01/07/23 01/08/23 23:59 23:59 23:59 Intake Total 340 / 480 1120 / 1120 Output Total 1775 / 2125 875 / 875 125 / 125 Balance -1435 / -1645 245 / 245 -125 / -125 Lab / Micro Data 01/08/23 05:59 01/08/23 05:59 Labs: Laboratory Results - last 24 hr 01/08/23 05:59: WBC 6.2, RBC 3.07 L, Hgb 10.1 L, Hct 31.3 L, MCV 102.0 H, MCH 32.9 H, MCHC 32.3, RDW Std Deviation 64.9 H, RDW Coeff of Zachary 17.9 H, Plt Count 254, MPV 9.7, Neut % (Auto) Not Reportable, Absolute Neuts (auto) 2.4, Absolute Lymphs (auto) 3.20, Total Counted 100, Neutrophils % (Manual) 38 L, Band Neutrophils % 1, Lymphocytes % (Manual) 52 H, Monocytes % (Manual) 5, Metamyelocytes % 2 H, Myelocytes % 1 H, Promyelocytes % 1 H, Nucleated RBCs/100 WBC 4, Diff Path Review August, Platelet Estimate ADEQUATE, RBC Morphology NORM C+C, Sodium 138, Potassium 3.9, Chloride 108 H, Carbon Dioxide 25.0, Anion Gap 5, BUN 22 H, Creatinine 0.67 L, Estim Creat Clear Calc 85.59, Est GFR (MDRD) Af Amer 151, Est GFR (MDRD) Non-Af 125, BUN/Creatinine Ratio 32.8 H, Glucose 89, Calcium 8.3 L Micro: Microbiology 01/02/23 14:05 Blood Culture (Wb) - Anticubital Left Blood Culture - Final No growth in 5 days. 01/02/23 13:55 Blood Culture (Wb) - Anticubital Left Blood Culture - Final No growth in 5 days. 01/02/23 23:16 Urine, Clean Catch Legionella Antigen - Final 01/02/23 23:16 Urine, Clean Catch Streptococcus pneumoniae Antigen (M - Final 01/02/23 19:25 Mucosa - Nose Coronavirus COVID-19 PCR - Final 01/02/23 19:25 Mucosa - Nasopharyngeal Respiratory Panel (PCR) - Final Physical Exam Const Constitutional Narrative: confused. opens eyes to voice and mumble incorently. Resp normal respiratory effort, no retractions, no use of accessory muscles and clear to auscultation bilaterally Cardio regular rate, regular rhythm, S1 normal heart sound and S2 normal heart sound GI normal to inspection, nondistended, normoactive bowel sounds, soft to palpation, non-tender and non-distended Assessment & Plan Assessment/Plan (1) Syncope: PLAN: Concern for aspiration. He is now on room air though. CXR showed findings suggestive of atelectasis in right lung base PT/OT on board fall precautions 2D echo: EF of 70% (2) Hypoxia: PLAN: Concern was for aspiration pneumonia CXRs were unremarkable Was on pip/tazo from the -. Strep and legionella Ag negative Resp panel negative COVID 19 negative (3) Glioblastoma: PLAN: Glioblastoma s/p bilateral frontal craniotomy. CT brain showed possible neoplastic process in the anterior aspect of the left frontal lobe with surrounding edema, which per his is similar to his baseline. on gleostine. spouse didn't want patient transferred to [facility] Main campus oncology. on dexamethasone 2mg bid. on Keppra Through [facility]: MRI brain 11/08/22: There is an increased thick rind of enhancement with multiple nodular enhancing foci around the treated left frontal lobe mass. This extends through the corpus callosum into the paramesial right frontal lobe. Increased nodular enhancement of the corpus callosum now 10 x 10 mm (19:101), previously approximately 5 x 6 mm. Overall T2/FLAIR hyperintense signal is decreased in extent, likely relating to a component of resolving posttreatment edema.Additionally, there is increased subependymal and periventricular white matter enhancement and T2/FLAIR hyperintense changes of the left occipital horn, measuring 17 x 13 mm (19:92), previously a punctate focus of enhancement. Neuro-Oncology (Dr. Carvalho) 11/30: IMPRESSION: Bifrontal glioblastoma, IDH1 wild-type, WHO grade 4, MGMTpromoter unmethylated. Did well clinically on adjuvant temozolomide 09/10(5 of 28 days) + SurvaxM/placebo. However, radiographic progression whileon MMVX + TMZ cycle 7. DARIUS procedure demonstrated 80% radiation necrosisand 20% viable tumor. Clinically, he has deteriorated since the LITTprocedure and radiographically there is now evidence of multifocal tumorprogression. He is also developing steroid myopathy.PLAN: We will proceed with the first cycle of BELOB therapy. MRI scan ofthe brain without and with contrast and perfusion will be performed in sixweeks to evaluate response to therapy. As noted above, based upon thatresponse, and his quality of life, we will make decisions about goingforward versus palliative care. Hopefully, also, bevacizumab will reduceenough cerebral edema to allow us to taper dexamethasone and help improvethe steroid myopathy. Mrs. Alves understands and is in agreement withthis plan PLAN: Plan Chronic conditions Anxiety and depression; on cymbalta and depakote BPH: on flomax and finasteride DVT prophylaxis; SCDs Disposition: to [facility]
--- NOTE | 2023-01-08 09:26 | CASEMGMT ---
Discharge Planning Auth has been received by [facility]. SW updated. Terrie Tracey, Discharge Planning Asst.
[2023-01-08] MEDS: dexAMETHasone 4 MG Tablet 2 MG PO (10:26)
[2023-01-08] MEDS: levETIRAcetam 500 MG Tablet PO (10:26)
[2023-01-08] MEDS: Thiamine Hydrochloride 100 MG Tablet PO (10:26)
[2023-01-08] MEDS: Finasteride 5 MG Tablet PO (10:26)
[2023-01-08] MEDS: DULoxetine Hcl 20 MG Capsule PO (10:27)
[2023-01-08] MEDS: Gabapentin 600 MG Tablet PO (10:27)
[2023-01-08 10:40] VITALS: BP 159/84; PULSE 66; RESP 18; TEMP 36.4; O2SAT 90
--- NOTE | 2023-01-08 10:56 | CASEMGMT ---
SW called patient's Jenny and let her know insurance has approved patient for [facility]. SW will let her know if physician plans on sending him today. Zeynep MEDELLIN
--- NOTE | 2023-01-08 11:58 | TREXTCAR_ITS ---
Diet Diet Order/Speech Therapy: 01/02/23 19:52 Diet: Cardiac - Heart Healthy Food consistency:: Regular Liquid Consistency:: Regular/Thin Is pt able to select menu?: No Routine Orders/Code Status Code Status: Full Code Wound(s) coccyx: Wound Type: Pressure Injury Therapies Physical Therapy: Eval and Treat Occupational Therapy: Eval and Treat Problem/Diagnosis (1) Syncope: Status: Inactive Code(s): R55 - Syncope and collapse Plan: Concern for aspiration. He is now on room air though. CXR showed findings suggestive of atelectasis in right lung base PT/OT on board fall precautions 2D echo: EF of 70% (2) Hypoxia: Status: Acute Code(s): R09.02 - Hypoxemia Plan: Concern was for aspiration pneumonia CXRs were unremarkable Was on pip/tazo from the -. Strep and legionella Ag negative Resp panel negative COVID 19 negative (3) Glioblastoma: Status: Acute Code(s): C71.9 - Malignant neoplasm of brain, unspecified Plan: Glioblastoma s/p bilateral frontal craniotomy. CT brain showed possible neoplastic process in the anterior aspect of the left frontal lobe with surrounding edema, which per his is similar to his baseline. on gleostine. spouse didn't want patient transferred to [facility] oncology. on dexamethasone 2mg bid. on Keppra Through [facility]: * MRI brain 11/08/22: There is an increased thick rind of enhancement with multiple nodular enhancing foci around the treated left frontal lobe mass. This extends through the corpus callosum into the paramesial right frontal lobe. Increased nodular enhancement of the corpus callosum now 10 x 10 mm (19:101), previously approximately 5 x 6 mm. Overall T2/FLAIR hyperintense signal is decreased in extent, likely relating to a component of resolving posttreatment edema.Additionally, there is increased subependymal and periventricular white matter enhancement and T2/FLAIR hyperintense changes of the left occipital horn, measuring 17 x 13 mm (19:92), previously a punctate focus of enhancement. * Neuro-Oncology (Dr. Carvalho) 11/30: IMPRESSION: Bifrontal glioblastoma, IDH1 wild-type, WHO grade 4, MGMTpromoter unmethylated. Did well clinically on adjuvant temozolomide 09/10(5 of 28 days) + SurvaxM/placebo. However, ra diographic progression whileon MMVX + TMZ cycle 7. DARIUS procedure demonstrated 80% radiation necrosisand 20% viable tumor. Clinically, he has deteriorated since the LITTprocedure and radiographically there is now evidence of multifocal tumorprogression. He is also developing steroid myopathy.PLAN: We will proceed with the first cycle of BELOB therapy. MRI scan ofthe brain without and with contrast and perfusion will be performed in sixweeks to evaluate response to therapy. As noted above, based upon thatresponse, and his quality of life, we will make decisions about goingforward versus palliative care. Hopefully, also, bevacizumab will reduceenough cerebral edema to allow us to taper dexamethasone and help improvethe steroid myopathy. Mrs. Alves understands and is in agreement withthis plan * Plan Chronic conditions * Anxiety and depression; on cymbalta and depakote * BPH: on flomax and finasteride DVT prophylaxis; SCDs Disposition: to [facility] Allergies/Procedures Done in Hospital Allergies bupropion [From Wellbutrin] Allergy (Mild, Verified 07/10/21 13:00) swelling Type of Care/Length of Stay Estimated LOS: Convalescent Care Less Than 30 days Type of Care Needed: Skilled Rehab Potential: Fair Prognosis: Poor Additional Orders/Day of Discharge Day of Discharge: 01/08/23 Dietary and Speech Recommendations Dietitian Recommendations/Changes: RD will liberalize diet to Regular to optimize oral intakes Continue 118mL Ensure Compact TID with medpass to provide supplemental energy RD will order Johnny BID to promote wound healing Discharge Plan Admission Admit Date/Time: 01/03/23 16:19 Primary Reason for Your Visit: syncope Attending Provider: Helder Veronica Primary Care Provider: [facility] Consulting Providers: Meri Hahn; Lisa Goldberg Discharge Orders/Prescriptions Prescriptions: New acetaminophen 325 mg Tablet 650 mg PO Q4H PRN PRN (Reason: Fever, pain 1-10/10) Qty: 0 0RF Ensure Compact Liquid 118 ml PO TIDCM Qty: 0 0RF Continued tamsulosin 0.4 MG capsule 0.8 mg PO QHS divalproex 250 mg tablet extended release 24 hr 250 mg PO QHS duloxetine 20 mg capsule, delayed rel sprinkle 20 mg PO DAILY ergocalciferol (vitamin D2) [Vitamin D2] 1,250 mcg (50,000 unit) capsule 1,250 mcg PO QMONTH finasteride 5 mg tablet 5 mg PO DAILY gabapentin 300 mg capsule 300 mg PO Q8H Gleostine 100 mg capsule 200 mg PO UD Rx Instructions: TAKE TWO 100MG CAPSULES AND ONE 40MG CAPSULE TOGETHER ONCE EVERY 6 WEEKS FOR A TOTAL DOSE OF 240MG lomustine 40 mg capsule 40 mg PO UD Rx Instructions: TAKE TWO 100MG CAPSULES AND ONE 40MG CAPSULE TOGETHER ONCE EVERY 6 WEEKS FOR A TOTAL DOSE OF 240MG melatonin 3 mg tablet 6 mg PO QHS ondansetron HCl 8 mg tablet 8 mg PO Q8H PRN (Reason: nausea/vomiting ) Rx Instructions: TAKE ONE TABLET BY MOUTH DIRECTED ONE HOUR PRIOR TO LOMUSTINE AND MAY REPEAT EVERY 8 HOURS NEEDED FOR NAUSEA AND VOMITING silver sulfadiazine [Silvadene] 1 % cream 1 applic topical BID Rx Instructions: APPLY A SUFFICIENT AMOUNT EXTERNALLY TWICE A DAY TO CARPET BURN AREA FOR 15 DAYS. START DATE 12-20-22 thiamine HCl (vitamin B1) 100 mg tablet 100 mg PO DAILY pantoprazole 20 mg tablet,delayed release (DR/EC) 20 mg PO DAILY Patient Comments: TAKE 1 TABLET BY MOUTH EVERY DAY dexamethasone 2 mg tablet 2 mg PO Q12H Patient Comments: TAKE 2 TABS BY MOUTH IN THE MORNING AND 2 TABS IN THE EVENING levetiracetam 500 mg tablet 500 mg PO Q12H Patient Comments: TAKE 1 TABLET BY MOUTH TWICE A DAY senna-docusate sodium Tablet 8.6 - 50 tab PO BID Discontinued atenolol 25 mg Tablet 25 mg PO DAILY Referrals [facility] - Within 2 Weeks Disposition Disposition (needs filled in before D/C Order can be placed): Long-Term Facility
--- NOTE | 2023-01-08 12:04 | DS.PCM_ITS ---
Providers Date of Admission: 01/03/23 Primary Care Physician: [facility] Reason For Visit: SYNCOPE, HYPOXIA Diagnosis Discharge Diagnosis (1) Syncope: Status: Inactive Code(s): R55 - Syncope and collapse Plan: Concern for aspiration. He is now on room air though. CXR showed findings suggestive of atelectasis in right lung base PT/OT on board fall precautions 2D echo: EF of 70% (2) Hypoxia: Status: Acute Code(s): R09.02 - Hypoxemia Plan: Concern was for aspiration pneumonia CXRs were unremarkable Was on pip/tazo from the -. Strep and legionella Ag negative Resp panel negative COVID 19 negative (3) Glioblastoma: Status: Acute Code(s): C71.9 - Malignant neoplasm of brain, unspecified Plan: Glioblastoma s/p bilateral frontal craniotomy. CT brain showed possible neoplastic process in the anterior aspect of the left frontal lobe with surrounding edema, which per his is similar to his baseline. on gleostine. spouse didn't want patient transferred to [facility] oncology. on dexa methasone 2mg bid. on Keppra Through [facility]: * MRI brain 11/08/22: There is an increased thick rind of enhancement with multiple nodular enhancing foci around the treated left frontal lobe mass. This extends through the corpus callosum into the paramesial right frontal lobe. Increased nodular enhancement of the corpus callosum now 10 x 10 mm (19:101), previously approximately 5 x 6 mm. Overall T2/FLAIR hyperintense signal is decreased in extent, likely relating to a component of resolving posttreatment edema.Additionally, there is increased subependymal and periventricular white matter enhancement and T2/FLAIR hyperintense changes of the left occipital horn, measuring 17 x 13 mm (19:92), previously a punctate focus of enhancement. * Neuro-Oncology (Dr. Carvalho) 11/30: IMPRESSION: Bifrontal glioblastoma, IDH1 wild-type, WHO grade 4, MGMTpromoter unmethylated. Did well clinically on adjuvant temozolomide 09/10(5 of 28 days) + SurvaxM/placebo. However, radiographic progression whileon MMVX + TMZ cycle 7. DARIUS procedure demonstrated 80% radiation necrosisand 20% viable tumor. Clinically, he has deteriorated since the LITTprocedure and radiographically there is now evidence of multifocal tumorprogression. He is also developing steroid myopathy.PLAN: We will proceed with the first cycle of BELOB therapy. MRI scan ofthe brain without and with contrast and perfusion will be performed in sixweeks to evaluate response to therapy. As noted above, based upon thatresponse, and his quality of life, we will make decisions about goingfo rward versus palliative care. Hopefully, also, bevacizumab will reduceenough cerebral edema to allow us to taper dexamethasone and help improvethe steroid myopathy. Mrs. Alves understands and is in agreement withthis plan * Plan Chronic conditions * Anxiety and depression; on cymbalta and depakote * BPH: on flomax and finasteride DVT prophylaxis; SCDs Disposition: to [facility] Medications tamsulosin 0.4 mg capsule 0.8 mg PO QHS prostate 09/05/19 dexamethasone 2 mg tablet 2 mg PO Q12H 01/02/23 divalproex 250 mg tablet,extended release 24 hr 250 mg PO QHS mood 01/02/23 duloxetine 20 mg capsule,delayed release sprinkle 20 mg PO DAILY depression 01/02/23 ergocalciferol (vitamin D2) 1,250 mcg (50,000 unit) capsule (Vitamin D2) 1,250 mcg PO QMONTH supplement 01/02/23 finasteride 5 mg tablet 5 mg PO DAILY prostate 01/02/23 gabapentin 300 mg capsule 300 mg PO Q8H neuropathy 01/02/23 levetiracetam 500 mg tablet 500 mg PO Q12H 01/02/23 lomustine 100 mg capsule (Gleostine) 200 mg PO UD cancer 01/02/23 lomustine 40 mg capsule 40 mg PO UD cancer 01/02/23 melatonin 3 mg tablet 6 mg PO QHS sleep 01/02/23 ondansetron HCl 8 mg tablet 8 mg PO Q8H PRN nausea/vomiting 01/02/23 pantoprazole 20 mg tablet,delayed release 20 mg PO DAILY 01/02/23 senna-docusate sodium tablet 8.6 - 50 tab PO BID 01/02/23 silver sulfadiazine 1 % topical cream (Silvadene) 1 applic topical BID carpet burn 01/02/23 thiamine HCl (vitamin B1) 100 mg tablet 100 mg PO DAILY supplement 01/02/23 acetaminophen 325 mg tablet 650 mg (2 x 325 mg) PO Q4H PRN PRN Fever, pain 1- 10/10 #0 tabs 01/08/23 food supplemt, lactose-reduced (Ensure Compact oral liquid) 118 ml PO TIDCM #0 mL 01/08/23 Hospital Course Operations None Procedures None Summary of Care Provided Minutes Spent on Discharge: 35 Hospital Course: Patient presents with syncopal episode at home. Concern was patient did have some transient hypoxia concern for his aspiration pneumonia but chest x-rays were unremarkable. Patient is weak and will be going to [facility]. Discussed with the patient's in regards to his overall prognosis. Did mention the concerns that his oncologist is in regards to his failure to respond to therapy. She is in touch with palliative care. Did also address advanced directives with her as he is currently full code. She is concerned that she would know when to call 911. I did tell her that being DNR [facility] arrest does not preclude him from having medical conditions treated such as infections or dehydration etc. She wishes to keep him full CODE STATUS at this time. I did her encouraged her to discuss it with the patient's oncologist in regards to what his recommendations would be for CODE STATUS. Weight / BMI Weight Weight: 87.7 kg Body Mass Index (BMI) 23.5 ABG / Lab / Microbiology Data 01/08/23 05:59 01/08/23 05:59 Laboratory: Laboratory Results - last 24 hr 01/08/23 05:59: WBC 6.2, RBC 3.07 L, Hgb 10.1 L, Hct 31.3 L, MCV 102.0 H, MCH 32.9 H, MCHC 32.3, RDW Std Deviation 64.9 H, RDW Coeff of Zachary 17.9 H, Plt Count 254, MPV 9.7, Neut % (Auto) Not Reportable, Absolute Neuts (auto) 2.4, Absolute Lymphs (auto) 3.20, Total Counted 100, Neutrophils % (Manual) 38 L, Band Neutrophils % 1, Lymphocytes % (Manual) 52 H, Monocytes % (Manual) 5, Metamyelocytes % 2 H, Myelocytes % 1 H, Promyelocytes % 1 H, Nucleated RBCs/100 WBC 4, Diff Path Review May , Platelet Estimate ADEQUATE, RBC Morphology NORM C+C, Sodium 138, Potassium 3.9, Chloride 108 H, Carbon Dioxide 25.0, Anion Gap 5, BUN 22 H, Creatinine 0.67 L, Estim Creat Clear Calc 85.59, Est GFR (MDRD) Af Amer 151, Est GFR (MDRD) Non-Af 125, BUN/Creatinine Ratio 32.8 H, Glucose 89, Calcium 8.3 L Microbiology: Microbiology 01/02/23 14:05 Blood Culture (Wb) - Anticubital Left Blood Culture - Final No growth in 5 days. 01/02/23 13:55 Blood Culture (Wb) - Anticubital Left Blood Culture - Final No growth in 5 days. 01/02/23 23:16 Urine, Clean Catch Legionella Antigen - Final 01/02/23 23:16 Urine, Clean Catch Streptococcus pneumoniae Antigen (M - Final 01/02/23 19:25 Mucosa - Nose Coronavirus COVID-19 PCR - Final 01/02/23 19:25 Mucosa - Nasopharyngeal Respiratory Panel (PCR) - Final Meaningful Use Info Meaningful Use Diagnoses (Choose all that apply): None applicable Discharge Plan Admission Admit Date/Time: 01/03/23 16:19 Primary Reason for Your Visit: syncope Attending Provider: Helder Veronica Primary Care Provider: [facility] Consulting Providers: Meri Hahn; Lisa Goldberg Discharge Orders/Prescriptions Prescriptions: New acetaminophen 325 mg Tablet 650 mg PO Q4H PRN PRN (Reason: Fever, pain 1-01/23) Qty: 0 0RF Ensure Compact Liquid 118 ml PO TIDCM Qty: 0 0RF Continued tamsulosin 0.4 MG capsule 0.8 mg PO QHS divalproex 250 mg tablet extended release 24 hr 250 mg PO QHS duloxetine 20 mg capsule, delayed rel sprinkle 20 mg PO DAILY ergocalciferol (vitamin D2) [Vitamin D2] 1,250 mcg (50,000 unit) capsule 1,250 mcg PO QMONTH finasteride 5 mg tablet 5 mg PO DAILY gabapentin 300 mg capsule 300 mg PO Q8H Gleostine 100 mg capsule 200 mg PO UD Rx Instructions: TAKE TWO 100MG CAPSULES AND ONE 40MG CAPSULE TOGETHER ONCE EVERY 6 WEEKS FOR A TOTAL DOSE OF 240MG lomustine 40 mg capsule 40 mg PO UD Rx Instructions: TAKE TWO 100MG CAPSULES AND ONE 40MG CAPSULE TOGETHER ONCE EVERY 6 WEEKS FOR A TOTAL DOSE OF 240MG melatonin 3 mg tablet 6 mg PO QHS ondansetron HCl 8 mg tablet 8 mg PO Q8H PRN (Reason: nausea/vomiting ) Rx Instructions: TAKE ONE TABLET BY MOUTH DIRECTED ONE HOUR PRIOR TO LOMUSTINE AND MAY REPEAT EVERY 8 HOURS NEEDED FOR NAUSEA AND VOMITING silver sulfadiazine [Silvadene] 1 % cream 1 applic topical BID Rx Instructions: APPLY A SUFFICIENT AMOUNT EXTERNALLY TWICE A DAY TO CARPET BURN AREA FOR 15 DAYS. START DATE 12-20-22 thiamine HCl (vitamin B1) 100 mg tablet 100 mg PO DAILY pantoprazole 20 mg tablet,delayed release (DR/EC) 20 mg PO DAILY Patient Comments: TAKE 1 TABLET BY MOUTH EVERY DAY dexamethasone 2 mg tablet 2 mg PO Q12H Patient Comments: TAKE 2 TABS BY MOUTH IN THE MORNING AND 2 TABS IN THE EVENING levetiracetam 500 mg tablet 500 mg PO Q12H Patient Comments: TAKE 1 TABLET BY MOUTH TWICE A DAY senna-docusate sodium Tablet 8.6 - 50 tab PO BID Discontinued atenolol 25 mg Tablet 25 mg PO DAILY Referrals [facility] - Within 2 Weeks Disposition Disposition (needs filled in before D/C Order can be placed): [facility] Charges/Coding Visit Charges Inpatient E&M: 21403 Disch Hosp >30min
[2023-01-08 12:15] VITALS: BP 149/92; PULSE 93; RESP 18; TEMP 36.9; O2SAT 93
--- NOTE | 2023-01-08 13:09 | CASEMGMT ---
Discharge Planning Discharge orders, signed med list and transport time sent to [facility] via [facility]. [facility] will transport patient by cot at 1:15p. Nursing, SW, and patients updated. Terrie Tracey, Discharge Planning Asst.
--- NOTE | 2023-01-08 13:18 | NURSING ---
Report called to Oscar at [facility], denies any further questions.
--- NOTE | 2023-01-08 13:30 | CASEMGMT ---
SW completed a PASRR in [facility] system. Patient will go to [facility] under skilled level of care. Zeynep MEDELLIN
[2023-01-08 15:27] LABS: Pathologist Review Reviewed
[2023-01-09 08:44] LABS: Pathologist Review Reviewed
[2023-01-09 08:44] LABS: Pathologist Review Reviewed
== END 2023-01-08 13:36 | disposition skilled nursing facility (03) | DRG 312 ==
LOC: ED 18:43 → PCU 18:48
PROVIDERS: Student in an Organized Health Care Education/Training Program; Admitting Provider Family Medicine; Emergency Provider Emergency Medicine
DX: R55 Syncope and collapse (principal); C71.1 Malignant neoplasm of frontal lobe; G93.6 Cerebral edema; I10 Essential (primary) hypertension; F32.A Depression, unspecified; R00.1 Bradycardia, unspecified; F17.210 Nicotine dependence, cigarettes, uncomplicated; K21.9 Gastro-esophageal reflux disease without esophagitis; F41.9 Anxiety disorder, unspecified; R09.02 Hypoxemia; R73.9 Hyperglycemia, unspecified; N40.0 Benign prostatic hyperplasia without lower urinary tract symptoms; Z20.822 Contact with and (suspected) exposure to COVID-19; Z79.52 Long term (current) use of systemic steroids; Z79.899 Other long term (current) drug therapy
CPT/HCPCS: 36415; 36600; 70450; 71045; 80048; 80053; 80164; 81001; 82140; 82803; 83036; 83605; 83735; 84100; 84145; 84484; 85025; 85610; 85730; 87040; 87449; 87633; 87635; 87641; 92526; 92610; 93005; 93306; 94668; 96361; 96365; 96366; 97110; 97116; 97163; 97165; 97530; 99221; 99285; J7030; J7040; Q9957; A4216; C8929; G0378